=== PATIENT | male | born 1955 | race Caucasian/White ===

== ENCOUNTER → 2021-07-03 03:19 | Outpatient (CLI) | payer BC, SELFPAY ==
[2021-07-03 17:41] LABS: SARS-CoV-2 RNA PCR Negative
== END ==
PROVIDERS: PCP Internal Medicine; Visit Provider Internal Medicine
DX: R68.89 Other general symptoms and signs (principal); Z20.822 Contact with and (suspected) exposure to COVID-19
CPT/HCPCS: C9803; U0003; U0005

== ENCOUNTER 2021-11-26 02:24 | Day surgery (SDC) | payer BC, SELFPAY ==
[2021-11-25 15:38] VITALS: BMI 32.5
--- NOTE | 2021-11-25 16:06 | PC.NURSE ---
Report to the Outpatient Waiting Room, entrance under the green pavilion located off [facility], at time __1045 on date __11/26/21 . OR Time: ____1245____. - You and your visitor will be asked a series of questions to screen for COVID 19 for your protection. - A mask is required within the hospital. Preoperative COVID Testing Requirements: NONE No COVID Test needed if: (proof is required; if not received patient will have Rapid Test prior to entry) - Patient has received COVID Vaccine at least 14 days prior to procedure date or - Patient has positive COVID test result within last 90 days of surgery date. COVID Test needed if above criteria is not met If not COVID vaccinated a COVID test must be conducted within 72 hours of surgery and patient is asked to isolate self from time of testing until procedure. You will go to the [facility] for your COVID testing. The [employer] [facility] site is located at the corner of [address] [facility]. You will only be called if COVID results are positive and your surgeon may reschedule your elective surgery date. Patients may have clear liquids (water, carbonated beverages, clear teas, apple juice) until 3 hours prior to surgery (0945 AM) with a maximum of 20 ounces. - No food from midnight until time of surgery - Infants may have breast milk until 4 hours before surgery, formula 6 hours prior to surgery. - Children will be allowed to drink immediately following surgery. If applicable, please bring a bottle or sippy cup to assist with drinking. Juice, water, soda, and popsicles are readily available. For infants on formula, please bring formula the day of surgery. Pacifiers are allowed. Take the following medications with a SIP of water the morning of surgery: __CARVEDILOL, HYDRALAZINE, ISOSORBIDE__ Medications to discontinue per physician __ASPIRIN PER DR KEY'S INSTRUCTIONS Date to take last dose Please no make-up, nail swiss, hairspray, perfume, deodorant, or body powder the day of surgery. No jewelry (including any body piercings) or valuables the day of surgery, leave them at home. Please take a shower or bath the night before, or the morning of, surgery with an antibacterial soap. Wear comfortable, loose fitting clothing. Children are encouraged to wear pajamas. - Jewelry must be removed prior to entering the operating room. Rings and piercings that are not removed may be cut off. - The hospital will not accept responsibility for valuables. - Please leave all valuables, including medications, at home the day of surgery. If you are going home after surgery, a licensed furniture mover driver must drive you home. - NO public transportation without another adult. - We recommend that an adult stay with you for 24 hours following discharge. - We also recommend that you do not drive, make important decision, drink alcoholic beverages, or take any drugs that were not prescribed by your health care provider for at least 24 hours after your discharge time. For Pediatric surgeries, we recommend two adults accompany the child home (only one inside the building at this time). One visitor will be allowed to accompany the patient into the hospital. Patients visitor will be instructed to remain with patient at all times or leave the building. We will allow the visitor to come back to the postoperative area when patient is ready. Follow any additional instructions given to you from your surgeon. Telephone instructions given to ___PT and asked if any additional questions and then verbalized understanding. Patient advised to call surgeon office or pre surgery nurse liaison [phone] if any additional questions.
[2021-11-26] VITALS (10 sets, daily range): BP systolic 98–151; BP diastolic 43–96; PULSE 75–87; RESP 12–22; TEMP 36.1; O2SAT 93–100
--- NOTE | 2021-11-26 06:29 | WPDHPUPDATE1 ---
History and Physical Update Update Date/Time: 11/26/21 06:29 History and Physical has been reviewed, including an updated exam of the patient. There are NO changes in the patient's condition. Risks, benefits, and alternatives have been discussed and questions answered. Patient agrees to proceed with procedure.
--- NOTE | 2021-11-26 10:36 | PC.NURSE ---
Spoke with [facility] , Alberto Rodriguez, phone # [phone], regarding note from Dr. Carney. Alberto called Dr. Carney's office and spoke with staff - stated that using a magnet during the surgical procedure would be sufficient. To call Alberto if any further questions.
--- NOTE | 2021-11-26 11:06 | ECG_ITS ---
Measurements Intervals [place] Rate: 80 P: -7 PA: 194 QRS: -23 QRSD: 109 T: 99 QT: 380 QTc: 440 Interpretive Statements SINUS RHYTHM LATERAL ST AND T-WAVE ABNORMALITY, CONSIDER HYPERTROPHY VERSUS ISCHEMIA LEFT VENTRICULAR HYPERTROPHY AND ST-T CHANGE [VOLTAGE CRITERIA PLUS ST/T ABNORMALITY] POSSIBLE SEPTAL MYOCARDIAL INFARCTION , OF INDETERMINATE AGE [30 ms Q WAVE IN V1/V2] ABNORMAL ECG Electronically Signed On 11-26-2021 15:25:19 DATA TECHNICAL LEAD by Shane Smith M.D.
--- NOTE | 2021-11-26 11:39 | WPDANESEPPF ---
Anes - Initial Pre Proc Eval Procedure: Operation Date: 11/26/21 12:45 Proposed Procedures p Cystoscopy, - Sam Carver MD s Possible Trans Urethral Resection Bladder Tumor with Gemcitabine Instillation - Sam Carver MD Date/Time: 11/26/21 11:39 Surgeon: Sam Carver MD Pre Op Diagnosis: bladder lesion Patient Data Age: 66 Gender: M Height: 1.83 m Weight: 109.09 kg Allergies Allergy/AdvReac Type Severity Reaction Status Date / Time iohexol AdvReac Hives Verified 11/26/21 11:05 [From contrast - CT, X-RAY] Home Medications Medication Instructions Recorded Confirmed Type aspirin [Aspir-81] 81 mg PO DAILY 11/25/21 11/26/21 History carvedilol 6.25 mg BID 11/25/21 11/26/21 History chlorthalidone 25 mg DAILY 11/25/21 11/26/21 History docusate sodium [Colace] 100 mg PO DAILY 11/25/21 11/26/21 History empagliflozin-linagliptin 25 tablet DAILY 11/25/21 11/26/21 History [Glyxambi] hydralazine 25 mg TID 11/25/21 11/26/21 History insulin glargine [Lantus Solostar 33 unit SUBCUT HS 11/25/21 11/26/21 History U-100 Insulin] insulin lispro [Humalog KwikPen See Rx Instructions .ROUTE .COMPLEX 11/25/21 11/26/21 History Insulin] isosorbide mononitrate 30 mg PO DAILY 11/25/21 11/26/21 History lisinopril 5 mg DAILY 11/25/21 11/26/21 History metformin 500 mg PO BID 11/25/21 11/26/21 History rosuvastatin 20 mg DAILY 11/25/21 11/26/21 History sulfamethoxazole-trimethoprim 1 tablet BID 11/25/21 11/26/21 History Laboratory Tests 11/26/21 11:27 Sodium Pending Potassium Pending Chloride Pending Carbon Dioxide Pending Anion Gap Pending BUN Pending Creatinine Pending Estim Creat Clear Calc Pending Estimated GFR Pending Glucose Pending Calcium Pending Patient hx anesthesia problems: none Family hx anesthesia problems: none Results Review: All pre-operative results and documents have been reviewed as part of the pre-operative evaluation. [facility] Past Medical History Medical History CAD (coronary artery disease) Cardiac defibrillator in place Hyperlipidemia Hypertension Surgical History Surgical History Hx of CABG Social History Social History Smoking status: Current every day smoker Tobacco type: cigars Additional smoking assessment comments: STATES 1 CIGAR DAILY Alcohol intake: current Drinks per week: 5 Substance use: never Substance use type: does not use Living arrangements: with family Spiritual care concerns: No Anes - Eval Final PreProcedure Day of Procedure 11/26/21 11:39 Patient weight: obese Heart: regular rate and rhythm Lungs: decreased breath sounds Airway: Mallampati scale class II Neurological: alert and oriented Last oral intake: >/= 8 hours ASA classification: IV Emergent: no Anesthetic plan: proceed Anesthesia type and monitoring: general LMA and standard monitoring Other findings: magnet on defib interrogate in recovery Results Review: All pre-operative results and documents have been reviewed as part of the pre-operative evaluation. Informed Consent: The patient's anesthetic plan and its attendant risks and benefits were discussed with the patient/family/POA. Questions were solicited and answers provided to the satisfaction of the patient/family/POA.
[2021-11-26 11:46] LABS: Anion Gap 10 mmol/L (8-16); Blood Urea Nitrogen 18 mg/dL (9-20); Carbon Dioxide 26 mmol/L (22-30); Chloride 104 mmol/L (98-107); Estimated CRCL calculation 84 ml/min; Estimated Glomerular Filt Rate > 60; Glucose 170 mg/dL (65-110); Potassium 4.3 mmol/L (3.4-5.0); Sodium 140 mmol/L (137-145)
[2021-11-26] MEDS: ceFAZolin 2 GM/D5W 50 ML 2 GM/50 ML BAG IVPB (12:42)
[2021-11-26] MEDS: LACTATED RINGERS 1,000 ML 30 ML IV CONT (12:45)
--- NOTE | 2021-11-26 13:30 | W.PM.PROC2 ---
Procedure Note - Detailed Date of Procedure 11/26/21 Pre-op Diagnosis Bladder lesion Post-op Diagnosis Other (Bladder tumor) Procedure Performed TURBT (medium, 3-4cm) Surgeon Sam Carver MD Anesthesia General Description of Procedure The patient was brought to the operative suite where he is prepped and draped in a routine sterile fashion while in the dorsal lithotomy position. This is done after the uneventful induction of a general LMA anesthetic. 2% Xylocaine jelly is introduced intraurethrally and allowed to stand for an appropriate period of time. A 24F resectoscope sheath was placed in the bladder and the bladder is circumferentially inspected carefully. in route to the bladder I found no urethral stricture and moderate lateral lobe hyperplasia of the prostate without significant median lobe enlargement. 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 This area is resected in its entirety with an attempt made to include detrusor muscle for pathological evaluation of invasion. The base and periphery of this resected site is cauterized with a loop electrode. The remainder of the bladder mucosa is endoscopically normal without hyperemia. Prostatic urethra shows no sign of urothelial neoplasm. I opted not to do random biopsies. The bladder is emptied and the resectoscope was removed. The patient is taken to the recovery room having tolerated this procedure well. Estimated Blood Loss 0 Drains Yes Packing No Pathology Yes Complications No immediate complications Condition Stable Disposition PACU
--- NOTE | 2021-11-26 13:33 | W.PM.PROC2 ---
Procedure Note - Detailed Date of Procedure 11/26/21 Pre-op Diagnosis Bladder cancer Post-op Diagnosis Same Procedure Performed Gemcitabine installation into the bladder Surgeon Sam Carver MD Anesthesia None Description of Procedure With the patient in the supine position, a 16F Peterson catheter is placed using sterile technique. Using a protective facemask, gown and double layer of gloves Gemcitabine 2gm in 100cc saline is administered through the catheter/into the bladder. The catheter is then plugged. Patient was instructed to lie supine x20min, then to roll both the left and right x20 min. each. Total dwell time will be 60 min., after which the bladder will be drained and catheter removed. Estimated Blood Loss 0 Drains Yes Packing No Pathology None sent Complications No immediate complications Condition Stable Disposition PACU
[2021-11-26] MEDS: SODIUM CHLORIDE 0.9% IV 23.7 ML, GEMCITABINE HCL 1,000 MG BLADDER ×2 (13:39→13:40)
[2021-11-26 14:00] LABS: Glucose Point of Care 120 mg/dl (65-105)
[2021-11-26 14:00] LABS: Glucose Point of Care 120 mg/dl (65-105)
--- NOTE | 2021-11-26 16:00 | SUR.PHASEII ---
TISHA, MACIEL REP, CALLED TO VERIFY HE RECEIVED RESULTS FROM INTERROGATION.
== END 2021-11-26 16:12 | disposition home or self-care (01) ==
PROVIDERS: PCP Internal Medicine; Visit Provider Urology
PROC: 0TJB8ZZ Inspection of Bladder, Via Natural or Artificial Opening Endoscopic (ICD-10-PCS; CPT 52000; principal; 2021-11-26 12:45)
PROC: 0TBB8ZZ Excision of Bladder, Via Natural or Artificial Opening Endoscopic (ICD-10-PCS; CPT 52235; 2021-11-26 12:45)
DX: C67.4 Malignant neoplasm of posterior wall of bladder (principal); N40.1 Benign prostatic hyperplasia with lower urinary tract symptoms; R31.9 Hematuria, unspecified; I25.2 Old myocardial infarction; I11.9 Hypertensive heart disease without heart failure; E11.9 Type 2 diabetes mellitus without complications; E78.00 Pure hypercholesterolemia, unspecified; I34.1 Nonrheumatic mitral (valve) prolapse; F17.210 Nicotine dependence, cigarettes, uncomplicated; Z95.1 Presence of aortocoronary bypass graft; Z79.82 Long term (current) use of aspirin; Z79.84 Long term (current) use of oral hypoglycemic drugs; Z79.4 Long term (current) use of insulin; I25.10 Atherosclerotic heart disease of native coronary artery without angina pectoris; E78.5 Hyperlipidemia, unspecified; Z95.810 Presence of automatic (implantable) cardiac defibrillator; E66.9 Obesity, unspecified; Z68.32 Body mass index [BMI] 32.0-32.9, adult; R94.31 Abnormal electrocardiogram [ECG] [EKG]; F12.90 Cannabis use, unspecified, uncomplicated
CPT/HCPCS: 52235; 51720; 36415; 80048; 82948; 88305; 93005; J0690; J1100; J2250; J2405; J2704; J3010; J7120; J9201

== ENCOUNTER 2023-12-23 06:52 | Outpatient (CLI) | payer MEDICARE, OTHER, SELFPAY ==
--- NOTE | ~2023-12-23 | CT_ITS ---
EXAMINATION: CT abdomen pelvis wo/w con DATE: 12/23/2023 07:48 INDICATION: History of malignancy of the bladder. TECHNIQUE: Computed tomography (CT) of the abdomen and pelvis was performed without and with 100 cc i ntravenous contrast. The dose-length product was 2780.44 mGy-cm. Automated exposure control and itera tive reconstruction technique were employed. COMPARISON: None. FINDINGS: Lung bases unremarkable. Heart size normal. No significant pleural or pericardial effusion. There are nonobstructing bilateral renal stones. There are gallstones. Nonobstructive bowel gas rosi jaspal. No significant vascular abnormality. Fatty infiltration of the liver. The spleen, pancreas, adre nal glands and right kidney are unremarkable. There are are small subcentimeter hypodensities of the left kidney, most likely benign. Small fat-containing umbilical hernia. Nonobstructive bowel pattern. Prostate gland is enlarged. No focal bladder wall abnormalities are identified. There is an upper ab dominal wall ventral hernia containing fat. Tiny fat-containing umbilical hernia. Severe lumbar spond ylosis. No focal lytic or blastic lesions. No lymphadenopathy. No significant vascular abnormality. IMPRESSION: 1. Nonobstructing bilateral nephrolithiasis. 2: Cholelithiasis. Reviewed, dictated and finalized at location B.
[2023-12-23 07:25] LABS: Estimated Glomerular Filt Rate > 60
== END 2023-12-23 06:53 | disposition home or self-care (01) ==
PROVIDERS: PCP Internal Medicine; Visit Provider Urology
DX: Z85.51 Personal history of malignant neoplasm of bladder (principal); K80.20 Calculus of gallbladder without cholecystitis without obstruction; N20.0 Calculus of kidney
CPT/HCPCS: 74178; Q9967

== ENCOUNTER 2025-02-15 09:58 | Outpatient (CLI) | payer MEDICARE, SELFPAY ==
--- NOTE | ~2025-02-15 | CT_ITS ---
CT of the Abdomen and Pelvis: Indication: History of bladder malignancy Technique: 2.5 mm axial scans were obtained through the abdomen and pelvis prior to and following in travenous administration of 130 cc of Omnipaque 350. Dose reduction technique was used on this scan b y utilizing automated exposure control and iterative reconstruction technique. The dose-length produc t (DLP) was 2632.79 mGy-cm. COMPARISON: 12/23/2023 Findings: Scans through the lung bases are unremarkable. The liver, spleen, pancreas, adrenals and right kidney are within normal limits. Calcified gallstone present. Punctate nonobstructing left renal stone noted. There are atherosclerotic calcifications of the aorta. No lymphadenopathy. No bowel obstruction or bowel wall thickening. Multiple gastric varices are present at the gastric fu ndus region, extending to the splenic hilum. There is no evidence to suggest acute appendicitis. Images through the pelvis were performed. Urinary bladder unremarkable. Prostate gland mildly enlarge d. No ascites. Impression: No evidence for active malignancy or metastatic disease. Multiple gastric varices at the gastric fundus extending to the splenic hilum, essentially stable fro m prior exam. Cholelithiasis. Reviewed, dictated and finalized at location M. Impression: No evidence for active malignancy or metastatic disease. Multiple gastric varices at the gastric fundus extending to the splenic hilum, essentially stable from prior exam. Cholelithiasis.
--- OUTSIDE RECORDS SUMMARY | 2025-02-15 10:05 | XMS_ITS | Referral Summary ---
Author Organization [facility] Address [address] [place] [id number] Care Team Providers Care Litigation Legal Secretary Name Role Phone Mohsen Lewis MD Primary Care Provider [phone] Encounters Date Type Department Care Team Description 01/11/2025 7:00 AM CDT Ancillary Procedure [facility] Card[facility] [address] [phone] ICD (implantable cardioverter-defibril lator), dual, in situ; Ischemic cardiomyopathy 01/10/2025 Results Follow-Up [facility] Card[facility] [address] [place] [phone] Angelica Reilly MD Transthoracic Echo (TTE) Complete W Doppler/CF 01/08/2025 7:44 AM CDT - 01/08/2025 11:59 PM CDT Hospital Encounter [facility] Cardiac Testing [address] [place] [phone] Chronic combined systolic and diastolic heart failure (HCC) Discharge Disposition: Discharge to home or self care 11/26/2024 1:15 PM NURSING ATTENDANT Office Visit [facility] Cardiology [address] [place] [phone] Angelica Reilly MD Coronary artery disease involving [place] coronary artery of [place] heart without angina pectoris (Primary Dx); Chronic combined systolic and diastolic heart failure (HCC); Cardiomyopathy, ischemic from Last 3 Months Allergies Active Allergy Reactions Criticality Noted Date Comments Iodinated Contrast Media Hives Medium 11/19/2019 Medications insulin lispro (HumaLOG) 100 unit/mL insulin pen Inject 10 Units under the skin Active insulin glargine (LANTUS,BASAGLAR ) 100 unit/mL (3 mL) insulin pen 30 Units Acti ve aspirin 81 mg enteric coated tablet Take 1 tablet (81 mg total) by mouth daily Active metFORMIN XR (GLUCOPHAGE XR) 500 mg 24 hr tablet 1 tablet (500 mg total) 2 (two) times a day Active hydrALAZINE (APRESOLINE) 25 mg tablet TAKE 1 TABLET(25 MG) BY MOUTH THREE TIMES DAILY 90 tablet 1 05/05/20 20 Active rosuvastatin (CRESTOR) 40 mg tablet Take 1 tablet (40 mg total) by mouth nightly 90 tablet 3 02/02/20 24 Active sacubitriL-valsa rtan (ENTRESTO) 24-26 mg tabletIndication s:chronic heart failure Take 1 tablet by mouth 2 (two) times a day 180 tablet 3 05/26/20 24 025 Active carvediloL (COREG) 12.5 mg tabletIndication s:Ischemic cardiomyopathy,E ssential hypertension TAKE 1 TABLET(12.5 MG) BY MOUTH TWICE DAILY WITH MEALS 180 tablet 1 08/20/20 24 Active isosorbide mononitrate ER (IMDUR) 30 mg 24 hr tablet TAKE 1 TABLET(30 MG) BY MOUTH DAILY 90 tablet 1 09/11/20 24 Active docusate sodium (COLACE) 100 mg capsuleIndicatio ns:constipation Take 1 capsule (100 mg total) by mouth 2 (two) times a day Active chlorthalidone (HYGROTON) 25 mg tabletIndication s:Abnormal ECG,Cardiomyopat hy, unspecified type (HCC),Mixed hyperlipidemia,E ssential hypertension TAKE 1 TABLET(25 MG) BY MOUTH EVERY MORNING 90 tablet 1 02/02/20 25 Active chlorthalidone (HYGROTON) 25 mg tabletIndication s:Abnormal ECG,Cardiomyopat hy, unspecified type (HCC),Mixed hyperlipidemia,E ssential hypertension TAKE 1 TABLET(25 MG) BY MOUTH EVERY MORNING 90 tablet 1 08/03/20 24 025 Discontinued Active Problems Problem Noted Date Diagnosed Date Obstructive sleep apnea 05/21/2024 Assessment & Plan (09/06/2024 9:29 AM NURSING ATTENDANT): Patient continue to wear CPAP at 8 cm water pressure while sleeping. I did provide the patient with a sample mask. Assessment & Plan (07/23/2024 8:24 AM CDT): The patient has improved with CPAP therapy but still has a significant mask leak. I will decrease the CPAP setting further to 8 cm water pressure and will have the order sent to his DME supplier who is [employer]. He will follow up here in 2 months. Assessment & Plan (05/21/2024 9:21 AM CDT): Due to the significant mask leak I will decrease the patient's CPAP pressure to 10 cm water pressure. I did ask the patient to call back in if he does not like the change in pressure. He did verbalize understanding. The patient's DME is [employer]. S/P coronary artery bypass graft x 4 02/02/2024 Overview (02/02/2024): DUMONT to the LAD, saphenous vein graft to the PDA, saphenous vein graft to the distal left circumflex artery and saphenous vein graft to the 1st diagonal branch Pure hypercholesterolemia 07/07/2022 Hyperkalemia 08/10/2021 Cardiomyopathy, ischemic 01/08/2021 Morbid obesity 04/09/2020 Assessment & Plan (04/09/2020 11:20 AM CDT): Encouraged dieting weight loss Coronary artery disease invo lving [place] coronary artery of [place] heart 12/20/2019 Assessment & Plan (10/15/2020 11:02 AM NURSING ATTENDANT): Prior CABG. Pretty continue aspirin and Toprol and Crestor Assessment & Plan (04/09/2020 11:18 AM CDT): Urgent CABG November 19. Continue aspirin metoprolol Paroxysmal atrial fibrillation 12/06/2019 Assessment & Plan (04/09/2020 11:19 AM CDT): Amiodarone stopped in December. No recurrence Assessment & Plan (01/09/2020 10:52 AM CDT): No events. Stop amiodarone Assessment & Plan (12/06/2019 3:34 PM CDT): Extremely low burden postop period anticoagulation not recommended. Will continue amiodarone for about 1 more month. ICD (implantable cardioverter-defibrillator), virgie coronado, in situ 12/06/2019 Assessment & Plan (10/15/2020 10:54 AM NURSING ATTENDANT): Check today shows normal function. Underlying rhythm sinus. 3% a pace no V pacing excellent lead function. Battery 8 years. Assessment & Plan (04/09/2020 11:19 AM CDT): Check today shows normal function. Underlying rhythm sinus. 6% a pace no V pacing. Excellent lead function. No events. Battery eight years Assessment & Plan (01/09/2020 10:53 AM CDT): Check today shows normal function. Underlying rhythm sinus. 6% a pace no V pacing excellent lead function. No arrhythmias. Battery 9 years Assessment & Plan (12/06/2019 3:35 PM CDT): Healing well. Abnormal ECG 11/01/2019 Cardiomyopathy 11/01/2019 Assessment & Plan (10/15/2020 11:02 AM NURSING ATTENDANT): Stable. Continue lisinopril and Toprol Assessment & Plan (12/06/2019 3:34 PM CDT): Severe ischemic status post CABG. Doing well. Blood pressure lower than needs to be. Reduce lisinopril to 10 mg daily Nonrheumatic mitral valve regurgitation 11/01/19 Assessment & Plan (04/09/2020 11:18 AM CDT): Oyoz-sh-iuhhbeum Nonrheumatic aortic valve insufficiency 11/01/19 Diastolic dysfunction 11/01/2019 Mixed hyperlipidemia 11/01/2019 Assessment & Plan (10/15/2020 11:02 AM NURSING ATTENDANT): LDL okay. Continue statin Assessment & Plan (04/09/2020 11:20 AM CDT): Continue Crestor 20 Assessment & Plan (12/06/2019 3:34 PM CDT): Continue Crestor 10 mg daily Essential hypertension 11/01/2019 Palpitations 11/01/2019 Resolved Problems Problem Noted Date Diagnosed Date Resolved Date Snoring 02/06/2024 05/21/2024 Assessment & Plan (02/06/2024 8:48 AM CDT): The patient presents with snoring and excessive daytime hypersomnia. I have recommended proceeding with a nocturnal polysomnogram with a split night protocol if necessary and no MSLT. He will follow up here in 3 months. Social History Tobacco Use Types Packs/Day Years Used Date Smoking Tobacco: Some Days Cigars Smokeless Tobacco: Current Tobacco Cessation:Ready to Q uit: Not Asked; Counseling Given: Not Answered Alcohol Use Standard Drinks/Week Comments Not Currently 0 (1 standard drink = 0.6 oz pur e alcohol) Sex and Gender Information Value Date Recorded Sex Assigned at Not on file Legal Sex Male 11:25 AM NURSING ATTENDANT Gender Identity Not on file Sexual Orientation Not on file Last Filed Vital Signs Vital Sign Reading Time Taken Comments Blood Pressure 117/64 11/26/2024 12:56 PM NURSING ATTENDANT Pulse 80 11/26/2024 12:56 PM NURSING ATTENDANT Temperature 36.2 C (97.1 F) 09/06/2024 8:22 AM NURSING ATTENDANT Respiratory Rate 18 09/06/2024 8:22 AM NURSING ATTENDANT Oxygen Saturation 93% 11/26/2024 12:56 PM NURSING ATTENDANT Inhaled Oxygen Concentration - - Weight 112 kg (247 lb) 11/26/2024 12:56 PM NURSING ATTENDANT Height 182.9 cm (6') 09/06/2024 8:22 AM NURSING ATTENDANT Body Mass Index 33.5 09/06/2024 8:22 AM NURSING ATTENDANT Plan of Treatment Not on file Procedures Procedure Name Priority Date/Time Associated Diagnosis Comments TRANSTHORACIC ECHO (TTE) COMPLETE W DOPPLER/CF W CONTRAST Routine 01/08/2025 8:51 AM CDT Chronic combined systolic and diastolic heart failure (HCC) ECG 12-LEAD Routine 11/26/2024 12:59 PM NURSING ATTENDANT Coronary artery disease involving [place] coronary artery of [place] heart without angina pectoris Chronic combined systolic and diastolic heart failure (HCC) CT ABDOMEN PELVIS WO CONTRAST Schedule Routine, Read Routine (OP Routine) 11/24/2021 12:09 PM NURSING ATTENDANT Hematuria, unspecified type from Last 3 Months or Most Recently Relevant to Health Maintenance Results * TRANSTHORACIC ECHO (TTE) COMPLETE W DOPPLER/CF W CONTRAST (01/08/2025 8:51 AM CDT) LV EF 40-45 % CONS SCIMAGE Anatomical Region Laterality Modality Ultrasound 01/08/2025 7:59 AM CDT Narrative 01/10/2025 2:51 PM CDT Transthoracic Echocardiographic Report Patient Name: NAYAN TSAIHolly : 1955 (69y 6m) Gender: M Study Date: 01/08/2025 07:59:06 AM Ht(Inch): 72 Wt(Lb): 247 BSA: 2.39 Sales Training Manager: Tila Engel RDCS Order Provider: ANGELICA REILLY Heart Rate: 71 BMI: 33.5 BP: 117 / 64 Ref Provider: ANGELICA REILLY PROCEDURES: Echocardiographic Report: ([id number]) Transthoracic complete echo with contrast, 2D, spectral and tissue Doppler, color flow Doppler, M-mode. Contrast: A contrast injection of Definity was performed to improve assessment of LV function. Definity Lot Number: [id number]. INDICATIONS: I50.42 Chronic combined systolic (congestive) and diastolic (congestive) heart failure. FINDINGS: Left Ventricle: Normal left ventricular cavity size. Mild concentric left ventricular hypertrophy. Mildly depressed left ventricular systolic function. The Ejection Fraction (Vargas's) is measured at 45 %. The Ejection Fraction is visually estimated to be 40-45 %. Diastolic Function Left ventricular diastolic function is normal and left ventricular diastolic parameters are consistent with Grade I diastolic dysfunction (normal LA pressure). Paradoxical interventricular septal motion is seen and is a common finding in the post open heart surgery patient. Regional Wall Motion: There is mild hypokinesis in the mid anterior septum and mid posterior segment. There is akinesis in the apical septum and mid anterior septum. Right Ventricle: Normal right ventricular size. Normal right ventricular systolic function. Wire noted in the right heart. Left Atrium: Mildly dilated left atrium. Right Atrium: The right atrium is normal in size. Atrial Septum: No shunt by color Doppler. Mitral Valve: Normal mitral valve leaflet structure. MR noted by spectral doppler but not seen with colorflow. No mitral valve stenosis. Aortic Valve: Trileaflet aortic valve. The aortic cusps appear mildly sclerosed. No aortic regurgitation seen. No aortic valve stenosis. The mean transaortic gradient is 4 mmHg. The aortic valve area by the continuity equation (using VTI) is 2.86 cm2. Tricuspid Valve: The tricuspid valve demonstrates normal leaflet structure. There is trace to mild tricuspid valve regurgitation. No tricuspid valve stenosis. Pulmonic Valve: IA noted with spectral doppler but not seen with colorflow. Aorta: Normal aortic root. The aortic sinus is normal in size. The ascending aorta is normal in size. IVC: IVC is normal in size. CONCLUSIONS: 1. Mildly depressed left ventricular systolic function. The Ejection Fraction (Vargas's) is measured at 45 %. The Ejection Fraction is visually estimated to be 40-45 %. Diastolic Function Left ventricular diastolic function is normal and left ventricular diastolic parameters are consistent with Grade I diastolic dysfunction (normal LA pressure). 2. There is mild hypokinesis in the mid anterior septum and mid posterior segment. There is akinesis in the apical septum and mid anterior septum. MEASUREMENTS: 2D/MM Value Range Doppler Value LVIDd 2D 5.70 cm [ 3.50 - 5.70 ] AV Peak Mark 1.26 m/s LVIDs 2D 3.30 cm [ 3.10 - 4.60 ] AV Peak PG 6.35 mmHg IVSd 2D 1.60 cm [ 0.60 - 1.20 ] AV Mean PG 4.00 mmHg LVPWd 2D 1.50 cm [ 0.60 - 1.10 ] AV VTI 27.50 cm LV Thickness Ratio 1.07 LVOT Peak Mark 0.89 m/s LV Mass 2D 419.43 g LVOT Peak PG 3.17 mmHg LV Mass Index 2D 175.49 g/m2 LVOT Mean PG 2.00 mmHg RWT 0.53 LVOT VTI 20.70 cm EDV Mod BP 165.00 ml [ 62.00 - 150.00 ] LVOT Diam 2.20 cm LV EDV Index 69.04 ml/m2 PIETRO VTI 2.86 cm2 ESV Mod BP 89.10 ml [ 21.00 - 61.00 ] PIETRO Vmax 2.68 cm2 EF Mod BP 45 % [ 52 - 72 ] LVOT/AV VTI 0.75 - Dimensionless index (DVI) Visually Estimated EF 40-45 % MV E Peak Mark 0.81 m/s LA Dimension 2D 5.60 cm [ 1.90 - 4.00 ] MV A Peak Mark 0.89 m/s LA Length 2C 5.47 cm MV E/A 0.90 ratio LA Length 4C 5.98 cm MV Decel Time 187.00 msec LA Volume BP 102.00 ml Med E` Mark 5.98 cm/sec LA Volume Index 42.68 ml/m2 [ 16.00 - 34.00 ] Lat E` Mark 7.83 cm/sec TAPSE 1.58 cm [ 1.71 - 5.00 ] Average E/E` 11.73 AoR Diam 2D 3.40 cm [ 2.00 - 3.70 ] RV S` 7.51 cm/sec Ao Root Index 1.42 cm/m2 [ 1.00 - 2.00 ] PV Peak Mark 0.91 m/s PV Peak PG 3.31 mmHg - COMPARISONS: As compared with prior study, the following changes are now seen LVEF has improved slightly to 40-45%. ATTESTATION: I have reviewed and interpreted the pertinent images and measurements of this study. I attest to the conclusions in the final report that is provided above. DISCLAIMER: The study images and the final report will be retained in the patient chart by the [facility] for the legally required time period. This chart constitutes the legal record of any testing performed. Electronically Signed By: Angelica Reilly MD 01/10/2025 2:51:37 PM CDT Procedure Note Angelica Reilly MD - 01/10/2025 Transthoracic Echocardiographic Report Patient Name: NAYAN TSAI D : 1955 (69y 6m) Gender: M Study Date: 01/08/2025 07:59:06 AM Ht(Inch): 72 Wt(Lb): 247 BSA: 2.39 Sales Training Manager: Tila Engel RDCS Order Provider: ANGELICA REILLY Heart Rate: 71 BMI: 33.5 BP: 117 / 64 Ref Provider: ANGELICA REILLY PROCEDURES: Echocardiographic Report: ([id number]) Transthoracic complete echo withcontrast, 2D, spectral and tissue Doppler, color flow Doppler, M-mode. Contrast: A contrast injection of Definity was performed to improveassessment of LV function. Definity Lot Number: [id number]. INDICATIONS: I50.42 Chronic combined systolic (congestive) and diastolic (congestive)heart failure. FINDINGS: Left Ventricle: Normal left ventricular cavity size. Mild concentric leftventricular hypertrophy. Mildly depressed left ventricular systolic function. TheEjection Fraction (Vargas's) is measured at 45 %. The Ejection Fraction is visuallyestimated to be 40-45 %. Diastolic Function Left ventricular diastolic function is normal andleft ventricular diastolic parameters are consistent with Grade I diastolic dysfunction(normal LA pressure). Paradoxical interventricular septal motion is seen and is acommon finding in the post open heart surgery patient. Regional Wall Motion: There is mild hypokinesis in the mid anterior septumand mid posterior segment. There is akinesis in the apical septum and mid anteriorseptum. Right Ventricle: Normal right ventricular size. Normal right ventricularsystolic function. Wire noted in the right heart. Left Atrium: Mildly dilated left atrium. Right Atrium: The right atrium is normal in size. Atrial Septum: No shunt by color Doppler. Mitral Valve: Normal mitral valve leaflet structure. MR noted by spectraldoppler but not seen with colorflow. No mitral valve stenosis. Aortic Valve: Trileaflet aortic valve. The aortic cusps appear mildlysclerosed. No aortic regurgitation seen. No aortic valve stenosis. The mean transaorticgradient is 4 mmHg. The aortic valve area by the continuity equation (using VTI) is 2.86cm2. Tricuspid Valve: The tricuspid valve demonstrates normal leafletstructure. There is trace to mild tricuspid valve regurgitation. No tricuspid valvestenosis. Pulmonic Valve: IA noted with spectral doppler but not seen withcolorflow. Aorta: Normal aortic root. The aortic sinus is normal in size. Theascending aorta is normal in size. IVC: IVC is normal in size. CONCLUSIONS: 1. Mildly depressed left ventricular systolic function. The EjectionFraction (Vargas's) is measured at 45 %. The Ejection Fraction is visually estimated to be40-45 %. Diastolic Function Left ventricular diastolic function is normal and leftventricular diastolic parameters are consistent with Grade I diastolic dysfunction (normal LApressure). 2. There is mild hypokinesis in the mid anterior septum and mid posteriorsegment. There is akinesis in the apical septum and mid anterior septum. MEASUREMENTS: 2D/MM Value Range DopplerValue LVIDd 2D 5.70 cm [ 3.50 - 5.70 ] AV Peak Vel1.26 m/s LVIDs 2D 3.30 cm [ 3.10 - 4.60 ] AV Peak PG6.35 mmHg IVSd 2D 1.60 cm [ 0.60 - 1.20 ] AV Mean PG4.00 mmHg LVPWd 2D 1.50 cm [ 0.60 - 1.10 ] AV VTI27.50 cm LV Thickness Ratio 1.07 LVOT PeakVel 0.89 m/s LV Mass 2D 419.43 g LVOT Peak PG3.17 mmHg LV Mass Index 2D 175.49 g/m2 LVOT Mean PG2.00 mmHg RWT 0.53 LVOT VTI20.70 cm EDV Mod BP 165.00 ml [ 62.00 - 150.00 ] LVOT Diam2.20 cm LV EDV Index 69.04 ml/m2 PIETRO VTI2.86 cm2 ESV Mod BP 89.10 ml [ 21.00 - 61.00 ] PIETRO Vmax2.68 cm2 EF Mod BP 45 % [ 52 - 72 ] LVOT/AV VTI0.75 - Dimensionless index (DVI) Visually Estimated EF 40-45 % MV E PeakVel 0.81 m/s LA Dimension 2D 5.60 cm [ 1.90 - 4.00 ] MV A PeakVel 0.89 m/s LA Length 2C 5.47 cm MV E/A0.90 ratio LA Length 4C 5.98 cm MV DecelTime 187.00 msec LA Volume BP 102.00 ml Med E` Vel5.98 cm/sec LA Volume Index 42.68 ml/m2 [ 16.00 - 34.00 ] Lat E` Vel7.83 cm/sec TAPSE 1.58 cm [ 1.71 - 5.00 ] Average E/E`11.73 AoR Diam 2D 3.40 cm [ 2.00 - 3.70 ] RV S`7.51 cm/sec Ao Root Index 1.42 cm/m2 [ 1.00 - 2.00 ] PV Peak Vel0.91 m/s PV Peak PG 3.31 mmHg - COMPARISONS: As compared with prior study, the following changes are now seen LVEF hasimproved slightly to 40-45%. ATTESTATION: I have reviewed and interpreted the pertinent images and measurements ofthis study. I attest to the conclusions in the final report that is provided above. DISCLAIMER: The study images and the final report will be retained in the patientchart by the [facility] for the legally required time period. This chart constitutesthe legal record of any testing performed. Electronically Signed By: Angelica Reilly MD 01/10/2025 2:51:37 PM CDT Angelica Reilly MD CV ECHO PROCEDURES Final Result * ECG 12 lead (11/26/2024 12:59 PM NURSING ATTENDANT) us Angelica Reilly MD ECG ORDERABLES Fi nal Result * CT Abdomen Pelvis WO Contrast (11/24/2021 12:09 PM NURSING ATTENDANT) Anatomical Region Laterality Modality Body N/A Computed Tomogra phy 11/24/2021 12:1 7 PM NURSING ATTENDANT Narrative 11/24/2021 12:25 PM NURSING ATTENDANT EXAM DESCRIPTION: CT ABDOMEN PELVIS WO CONTRAST REASON FOR STUDY: HEMATURIA Hematuria and rt flank pain started this am TECHNIQUE: CT scan of the abdomen and pelvis performed without intravenous and without oral contrast using helical scanning technique. Reconstructed coronal and sagittal MPR images reviewed. All images stored on PACS. Automated exposure control was used as a dose optimization technique for this examination. COMPARISON: CT abdomen pelvis 11/22/2019 FINDINGS: The sensitivity for detection of visceral lesions is diminished without the use of intravenous contrast. LOWER CHEST: Minimal lingular atelectasis. Surgical changes of the heart. Right atrial and right ventricular leads from a cardiac device are partially visualized. No pleural or pericardial effusion. LIVER: Normal size and morphology. No focal liver lesion. GALLBLADDER: Cholelithiasis. No inflammatory changes. BILE DUCTS: No intrahepatic or extrahepatic biliary dilation. SPLEEN: Normal size. No focal lesions. PANCREAS: Grossly normal bulk and contour. No duct dilation or inflammatory change. ADRENALS: Normal. KIDNEYS/URINARY TRACT: Normal and symmetric renal size and contour. Tiny 1-2 mm nonobstructing stones in the left upper and lower poles. No obstructing stones. No hydroureteronephrosis. There is an irregular region of increased density in the right posterior aspect of the urinary bladder, near the right ureterovesical junction, measuring 2.8 x 2.2 cm. Mild chronic bladder wall thickening. GI: Stomach is grossly unremarkable, though somewhat distended with ingested material. Small bowel is not obstructed. Normal appendix is seen posterior to the cecum. There is colonic diverticulosis without evidence of acute diverticulitis. PERITONEUM: No ascites or free air. RETROPERITONEUM: No mass or adenopathy. REPRODUCTIVE: Mild prostatomegaly. VASCULATURE: No abdominal aortic aneurysm. Moderate atherosclerotic calcifications. MUSCULOSKELETAL: No acute fracture. No suspicious lytic or sclerotic bone lesion. There are 2 vertebral hemangiomas within the L2 vertebral body. There are degenerative changes throughout the lumbar spine. OTHER: There is a small fat containing hernia with a wide neck just inferior to the xiphoid. IMPRESSION: 1. Heterogeneous and irregular region of increased density in the right posterior aspect of the urinary bladder, close to the right ureterovesical junction. This is not calcium density. It could be blood products or clot. A mass lesion cannot be excluded. Correlation with urinalysis is needed. Urologic consultation and consideration for cystoscopy suggested. 2. Tiny nonobstructing left renal stones. No obstructing renal stones. 3. Chronic findings including colonic diverticulosis, atherosclerosis, degenerative disease in the spine, and partially visualized cardiac surgery changes. THIS IS AN ELECTRONICALLY VERIFIED FINAL REPORT 11/24/2021 12:25 PM - Electronically signed by Shane Aleman M.D. T: Report ID: [id number] Reading Location: [id number] Procedure Note Shane Aleman MD - 11/24/2021 EXAM DESCRIPTION: CT ABDOMEN PELVIS WO CONTRAST REASON FOR STUDY: HEMATURIA Hematuria and rt flank pain started this am TECHNIQUE: CT scan of the abdomen and pelvis performed without intravenousand without oral contrast using helical scanning technique. Reconstructed coronal and sagittal MPR images reviewed. All images stored on PACS. Automated exposure control was used as a dose optimization technique forthis examination. COMPARISON: CT abdomen pelvis 11/22/2019 FINDINGS: The sensitivity for detection of visceral lesions is diminished withoutthe use of intravenous contrast. LOWER CHEST: Minimal lingular atelectasis. Surgical changes of theheart. Right atrial and right ventricular leads from a cardiac device arepartially visualized. No pleural or pericardial effusion. LIVER: Normal size and morphology. No focal liver lesion. GALLBLADDER: Cholelithiasis. No inflammatory changes. BILE DUCTS: No intrahepatic or extrahepatic biliary dilation. SPLEEN: Normal size. No focal lesions. PANCREAS: Grossly normal bulk and contour. No duct dilation orinflammatory change. ADRENALS: Normal. KIDNEYS/URINARY TRACT: Normal and symmetric renal size and contour.Tiny 1-2 mm nonobstructing stones in the left upper and lower poles. No obstructing stones. No hydroureteronephrosis. There is an irregularregion of increased density in the right posterior aspect of the urinary bladder, near the right ureterovesical junction, measuring 2.8 x 2.2 cm. Mildchronic bladder wall thickening. GI: Stomach is grossly unremarkable, though somewhat distended withingested material. Small bowel is not obstructed. Normal appendix is seenposterior to the cecum. There is colonic diverticulosis without evidence of acute diverticulitis. PERITONEUM: No ascites or free air. RETROPERITONEUM: No mass or adenopathy. REPRODUCTIVE: Mild prostatomegaly. VASCULATURE: No abdominal aortic aneurysm. Moderate atherosclerotic calcifications. MUSCULOSKELETAL: No acute fracture. No suspicious lytic or scleroticbone lesion. There are 2 vertebral hemangiomas within the L2 vertebral body. There are degenerative changes throughout the lumbar spine. OTHER: There is a small fat containing hernia with a wide neck justinferior to the xiphoid. IMPRESSION: 1. Heterogeneous and irregular region of increased density in the right posterior aspect of the urinary bladder, close to the right ureterovesical junction. This is not calcium density. It could be blood products orclot. A mass lesion cannot be excluded. Correlation with urinalysis is needed. Urologic consultation and consideration for cystoscopy suggested. 2. Tiny nonobstructing left renal stones. No obstructing renal stones. 3. 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 THIS IS AN ELECTRONICALLY VERIFIED FINAL REPORT 11/24/2021 12:25 PM - Electronically signed by Shane Aleman M.D. T: Report ID: [id number] Reading Location: [place] [id number] Mohsen Lewis MD IMG CT PROCEDURES Final R esult from Last 3 Months or Most Recently Relevant to Health Maintenance Insurance [facility] CHOICE PLUS MEDICARE MEDICARE [facility] Care Teams Litigation Legal Secretary Relationship Specialty Start Date End Date Mohsen Lewis MD PCP - General 10/25/19
--- OUTSIDE RECORDS SUMMARY | 2025-02-15 10:06 | XMS_ITS | Encounter Summary ---
Author Organization [facility] Address [address] [place] [id number] Care Team Providers Care Leather Goods Assembler Name Role Phone Mohsen Lewis MD Primary Care Provider [phone] Encounter Details Date Type Department Care Team (Late st Contact Info) Description 01/10/2025 Results Follow-Up [facility] Cardiology [address] [facility] [address] [place] [phone] Bridger Reilly MD [address] [facility] [address] [id number] Transthoracic Echo (TTE) Complete W Doppler/CF Social History Tobacco Use Types Packs/Day Years Used Date Smoking Tobacco: Some Days Cigars Smokeless Tobacco: Current Alcohol Use Standard Drinks/Week Comments Not Currently 0 (1 standard drink = 0.6 oz pur e alcohol) Sex and Gender Information Value Date Recorded Sex Assigned at Not on file Legal 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
--- OUTSIDE RECORDS SUMMARY | 2025-02-15 10:06 | XMS_ITS | Continuity of Care Document ---
Author Organization [facility] Address [address] [place] [address] Phone Care Team Providers Care Entry Tech Name Role Phone Mohsen Lewis MD Unavailable Unavailable Allergies, Adverse Reactions, Alerts Substance Reaction Status Criticality Iodinated Contrast Media Active No Information No Known Drug Allergies Other Active No I nformation Medications Medication Instructions Dosage Effective Dates (start - stop) Status Comments Entresto 24 mg-26 mg tablet take 1 tablet by oral route 2 times every day 1.00 tablet - Active B-D PEN NDL SHRT [id number](02/08) SETH USE TO INJECT INSULIN THREE TIMES DAILY - Active GLYXAMBI 25MG/5MG TABLETS TAKE 1 TABLET BY MOUTH EVERY DAY IN THE MORNING - Active LANTUS SOLOSTAR PEN INJ 3ML ADMINISTER 33 UNITS UNDER THE SKIN EVERY DAY AT BEDTIME - Active HYDRALAZINE 25MG TABLETS(ORANGE) TAKE 1 TABLET BY MOUTH THREE TIMES DAILY WITH FOOD - Active metformin ER 500 mg tablet,extended release 24 hr TAKE 2 TABLETS BY MOUTH DAILY WITH THE EVENING MEAL - Active rosuvastatin 40 mg tablet take 1 tablet by oral route every day 40 MG - Active Humalog KwikPen (U-100) Insulin 100 unit/mL subcutaneous INJECT 4-10 UNITES UNDER THE SKIN FOLLOWING SLIDING SCALE THREE TIMES DAILY, NO MORE THAN 30 UNITS PER DAY - Active carvedilol 12.5 mg tablet take 1 tablet by oral route 2 times every day with food 12.5 MG - Active lisinopril 5 mg tablet take 1 tablet by oral route 2 times every day 5 MG - Active chlorthalidone 25 mg tablet take 1 tablet by oral route every day 25 MG - Active isosorbide mononitrate ER 30 mg tablet,extended release 24 hr take 1 tablet by oral route every day in the morning 30 MG - Active Colace 100 mg capsule take 1 capsule by oral route 2 times every day at bedtime as needed 100 MG - Active ADULT LOW STRENGTH 81MG TABS 1 QD-daily - Active Procedures Procedure Date Pt inelig neg scrn david OFFICE [id number] SYST BP GE 130 - 139MM HG DIAST BP 80-89 MM HG BASIC METABOLIC PANEL(BMP) HEMOGLOBIN A1C HGA1C, GLYCO ROUTINE VENIPUNCTURE IL CBC, INC PLATELETS AND DIFFERENTIAL COMPREHEN METABOLIC PANEL CMP HEMOGLOBIN A1C HGA1C, GLYCO LIPID PANEL MICROALBUMIN, QN (URINE) CREATININE, (U-R) PSA, TOTAL, SCREENING MEDICARE ONLY Pt inelig neg scrn david FALL RISK ASSESSMENT DOC'D PRES/ABSN URINE INCON ASSESS PPPS, subseq visit SYST BP GE 130 - 139MM HG DIAST BP < 80 MM HG ROUTINE VENIPUNCTURE IL Pt inelig neg charlotten david OFFICE [id number]-AXIEKARV SYST BP GE 130 - 139MM HG DIAST BP 80-89 MM HG BASIC METABOLIC PANEL(BMP) HEMOGLOBIN A1C HGA1C, GLYCO Pt inelig neg scrn depres OFFICE [id number] SYST BP LT 130 MM HG DIAST BP < 80 MM HG ROUTINE VENIPUNCTURE IL Fecal Occult Blood Mdcr CBC, INC PLATELETS AND DIFFERENTIAL COMPREHEN METABOLIC PANEL [facility] [address] 3 HEMOGLOBIN A1C HGA1C, GLYCO LIPID PANEL MICROALBUMIN, QN (URINE) CREATININE, (U-R) PSA, TOTAL, SCREENING MEDICARE ONLY Pt inelig neg scrn depres FALL RISK ASSESSMENT DOC'D PRES/ABSN URINE INCON ASSESS SYST BP LT 130 MM HG DIAST BP < 80 MM HG ROUTINE VENIPUNCTURE IL INIT PREVENT PHYS EXAM; LIMITED TO NEW B ENEFICIARY BASIC METABOLIC PANEL(BMP) HEMOGLOBIN A1C HGA1C, GLYCO OFFICE [id number] SYST BP GE 130 - 139MM HG DIAST BP < 80 MM HG PNEUMOVAX ADM MEDICARE Pneumococcal Conjugate Vaccine (PCV20) J ROUTINE VENIPUNCTURE IL FECAL GLOBULIN (FOBT) Pt inelig neg scrn depres PREVENTATIVE-EST: 40-64 BODY MASS INDEX DOCD SYST BP GE 130 - 139MM HG DIAST BP < 80 MM HG CBC, INC PLATELETS AND DIFFERENTIAL COMPREHEN METABOLIC PANEL [facility] [address] 2 HEMOGLOBIN A1C HGA1C, GLYCO LIPID PANEL MICROALBUMIN, QN (URINE) CREATININE, (U-R) PSA, TOTAL ROUTINE VENIPUNCTURE Pt inelig neg scrn depres OFFICE [id number] BODY MASS INDEX DOCD SYST BP >= 140 MM HG6 IT DIAST BP < 80 MM HG BASIC METABOLIC PANEL(BMP) ROUTINE VENIPUNCTURE URINALYSIS W MICROSCOPIC (UA) 2 Pt inelig neg scrn depres OFFICE [id number] BODY MASS INDEX DOCD SYST BP LT 130 MM HG DIAST BP < 80 MM HG BASIC METABOLIC PANEL(BMP) HEMOGLOBIN A1C HGA1C, GLYCO ROUTINE VENIPUNCTURE OFFICE [id number] BODY MASS INDEX DOCD SYST BP GE 130 - 139MM HG DIAST BP < 80 MM HG IMMUN ADMIN (INC PERCUTANEOUS) SINGLE, F IRST INJ Flu Vac, quad (RIV4), Preservative And A ntibiotic Free IM Pt inelig neg scrn depres PREVENTATIVE-EST: 40-64 BODY MASS INDEX DOCD SYST BP LT 130 MM HG DIAST BP < 80 MM HG CBC, INC PLATELETS AND DIFFERENTIAL COMPREHEN METABOLIC PANEL CMP HEMOGLOBIN A1C HGA1C, GLYCO LIPID PANEL MICROALBUMIN, QN (URINE) CREATININE, (U-R) PSA, TOTAL ROUTINE VENIPUNCTURE Pt inelig neg scrn depres OFFICE [id number] BODY MASS INDEX DOCD SYST BP >= 140 MM HG6 IT DIAST BP 80-89 MM HG BASIC METABOLIC PANEL(BMP) HEMOGLOBIN A1C HGA1C, GLYCO ROUTINE VENIPUNCTURE Pt inelig neg scrn depres BODY MASS INDEX DOCD SYST BP >= 140 MM HG6 IT DIAST BP < 80 MM HG PREVENTATIVE-EST: 40-64 CBC, INC PLATELETS AND DIFFERENTIAL COMPREHEN METABOLIC PANEL CMP 0 HEMOGLOBIN A1C HGA1C, GLYCO LIPID PANEL MICROALBUMIN, QN (URINE) CREATININE, (U-R) PSA, TOTAL ROUTINE VENIPUNCTURE Pt inelig neg scrn depres OFFICE [id number] BODY MASS INDEX DOCD SYST BP LT 130 MM HG DIAST BP < 80 MM HG DSCHRG MED/CURRENT MED MERGE Transitional Care- 14 Days Of Discharge BODY MASS INDEX DOCD SYST BP LT 130 MM HG DIAST BP < 80 MM HG Pt inelig neg scrn depres OFFICE [id number] BODY MASS INDEX DOCD SYST BP >= 140 MM HG6 IT DIAST BP 80-89 MM HG Pt inelig neg scrn depres PREVENTATIVE-EST: 40-64 BODY MASS INDEX DOCD SYST BP LT 130 MM HG DIAST BP < 80 MM HG Advance Directives Directive Yes / No Effective Date File Name Life Support Not Answered N/A N/A Intubation Not Answered N/A N/A Antibiotics Not Answered N/A N/A IV Fluid Support Not Answered N/A N/A Tube Feed Not Answered N/A N/A Other Directive N/A N/A WARNING:The information contained in this section is historical and is provided for information only and does not constitute a legal document or any assurance that the information is still accurate. Please verify the information with the frost of the legal document before using it for clinical purposes. Encounters Encounter Description Practice Location Reason(s) For Visit Diagnoses Date Provider Providers Copied on Encounter [facility] [address], [address], [place], [place], [address] , tel: [phone] [facility] No Information 5 English Connolly. [address] [place], [place], [address], [place]. tel:[phone] OFFICE HJRDY-MNU-DCX ABIODUN [facility], [address], [place], [place], [address] , tel: [phone] [facility] chronic problems (chief complaint) Body mass index [BMI] 33.0-33.9, adultAmputated toe of left footType 2 diabetes mellitus with diabetic neuropathy, unspecifiedVent ricular fibrillationLon g term (current) use of insulinIschemic cardiomyopathyLATROBE [facility], goal below 130/80Coronary artery disease of [place] artery of [place] heart with stable angina pectorisThrombo kelsey 5 English Connolly. [address] [place], [place], [address], [place]. tel:[phone] Referring Provider: Mohsen Lewis [address] [place], [address] . tel:[phone] [facility], [address], [place], [place], [address] , [place] tel:[phone] [facility] No Information 5 Ramiro Reed. [address] [place] [address], [id number], . tel:[phone] Referring Provider: Mohsen Lewis [address] [place], [address] . tel:[phone] [facility], [address], [place], [place], [address] , [place] tel: [phone] [facility] Hypertensive heart disease without heart failureType 2 diabetes mellitus with foot ulcer, unspecified whether alf insulin useNon-pressure chronic ulcer of other part of unspecified foot with unspecified severity 5 Hungarian Mohsen. [address] [place], [place], [address], [place]. tel:[phone] Referring Provider: Mohsen Lewis, [address] [place], [address] . tel:[phone] [facility] [address], [address], [place], [place], [address] , [place] tel: [phone] [facility] No Information 5 Hungarian Mohsen. [address] [place], [address], [place]. tel:[phone] [facility] [address], [address], [place], [place], [address] , [place] tel: [phone] [facility] No Information 4 Hungarian Mohsen. [address] [place], [address], [place]. tel:[phone] [facility] [address], [address], [place], [place], [address] , [place] tel: [phone] [facility] No Information 4 Hungarian Mohsen. [address] [place], [address], [place]. tel:[phone] [facility] [address], [address], [place], [place], [address] , [place] tel: [phone] [facility] No Information 4 Hungarian Mohsen. [address] [place], [address], [place]. tel:[phone] [facility], [address], [place], [place], [address] , [place] tel: [phone] [facility] No Information 4 Ramiro Reed. [address] [facility], [place] [address], [place], [address], . tel:[phone] Referring Provider: Mohsen Lewis, [address] [place], [address] . tel:[phone] [facility], [address], [place], [place], [address] , tel:[phone] [facility] PX (chief complaint) Body mass index [BMI] 32.0-32.9, adultEncounter for general adult medical examination without abnormal findingsHyperte nsive heart disease without heart failureType 2 diabetes mellitus with foot ulcerVentricula r fibrillationAmp utated toe of left footMixed hyperlipidemiaL kendall-term insulin useScreening for colon cancerProstate cancer screening 4 English Connolly. [address] [place], [place], [address], . tel:[phone] Referring Provider: Mohsen Lewis, [address] [place], [address] . tel:[phone] [facility], [address], [place], [place], [address] , tel:[phone] [facility] No Information 4 English Connolly. [address] [place], [address], [place]. tel:[phone] OFFICE BPCIK-CDO-KAF ANDED [facility], [address], [place], [place], [address] , tel:[phone] [facility] toe ulcer (chief complaint) Body mass index [BMI] 33.0-33.9, adultNon-healin g ulcer of foot, unspecified laterality, unspecified ulcer stageType 2 diabetes mellitus with foot ulcer 4 English Connolly. [address] [place], [address], [place]. tel:[phone] Referring Provider: Jessica Lewis, [address], [place], [address]. tel:[phone] [facility], [address], [place], [place], [address] , [place] tel: [phone] [facility] No Information 4 English Connolly. [address] [place], [address], [place]. [phone] [facility] [address], [place], [place], [address] , tel: [phone] [facility] No Information 4 Ramiro Reed. [address] [place] [address], [id number], [place]. tel:[phone] Referring Provider: Marie Jean Baptiste, [address] [place], [address] . tel:[phone] OFFICE VBPBE-VES-XUO ABIODUN [facility], [address], [place], [place], [address] , tel: [phone] [facility] chronic conditions (chief complaint)C hronic Conditions (chief complaint) Type 2 diabetes mellitus with other circulatory complication, with long-term current use of insulinAtrial fibrillation, unspecified typeCoronary artery disease involving [place] heart without angina pectoris, unspecified vessel or lesion typeThrombopeni aIschemic cardiomyopathyM ixed hyperlipidemiaL kendall-term insulin useHypertensive heart disease without heart failureBody mass index [BMI] 34.0-34.9, adult 4 Markel Salazar. [address] [place], [address], [place]. tel:[phone] Referring Provider: Mohsen Lewis, [address] [place], [address] . tel:[phone] [facility] [address], [place], [place], [address] , [place] tel:[phone] [facility] Screening for colon cancer 3 Ramiro Reed. [address] [place] [address], [id number], . tel:[phone] Referring Provider: Mohsen Lewis, [address] [place], [address] . tel:[phone] [facility], [address], [place], [place], [address] , [place] tel: [phone] [facility] No Information 3 Ramiro Bansaln. [address] [facility], [address], [id number], [place]. tel:[phone] Referring Provider: Mohsen Lewis, [address] [place], [address] . tel:[phone] [facility], [address], [place], [place], [address] , [place] tel: [phone] [facility] px (chief complaint)M edicare preventive (chief complaint) Body mass index [BMI] 33.0-33.9, adultEncounter for general adult medical examination without abnormal findingsCoronar y artery disease involving [place] heart without angina pectoris, unspecified vessel or lesion typeIschemic cardiomyopathyT ype 2 diabetes mellitus with other circulatory complication, with long-term current use of insulinAmputate d toe of left footVentricular tachycardiaAtri al fibrillation, unspecified typeThrombopeni aScreening for colon cancer 3 English Connolly. [address] [place], [place], [address], [place]. tel:[phone] Referring Provider: Mohsen Lewis, [address] [place], [address] . tel:[phone] [facility], [address], [place], [place], [address] , [place] tel: [phone] [facility] No Information 3 English Connolly. [address] [place], [place], [address], [place]. tel:[phone] [facility], [address], [place], [place], [address] , [place] tel: [phone] [facility] No Information 3 Ramiro Bansaln. [address] [facility], [place] [address], [place], [place], [address], [place]. tel:[phone] Referring Provider: Marie Jean Baptiste, [address] [place], [address] . tel:[phone] OFFICE IBGMB-QKX-AFY ABIODUN [facility], [address], [place], [place], [address] , tel:[phone] [facility] Patient encounter (chief complaint) Coronary artery disease involving [place] heart without angina pectoris, unspecified vessel or lesion typeType 2 diabetes mellitus without complicationsMi xed hyperlipidemiaI schemic cardiomyopathyH [place], goal below 130/80Body mass index [BMI] 33.0-33.9, adult 3 Markel Salazar. [address] [place], [address], . tel:[phone] Referring Provider: Mohsen Lewis, [address] [place] [address], [address] . tel:[phone] [facility], [address], [place], [place], [address] , tel:[phone] [facility] No Information 2 English Connolly. [address] [place] [address], [address], [place]. tel:[phone] [facility], [address], [place], [place], [address] , tel:[phone] [facility] Colon cancer screening 2 English Connolly. [address] [place] [address], [address], . tel:[phone] Referring Provider: [place], [address] . tel:[phone] PREVENTATIVE- EST: 40-64 [facility], [address], [place], [place], [address] , [place] tel:[phone] [facility] PX (chief complaint) Encounter for general adult medical examination without abnormal findingsCoronar y artery disease involving [place] heart without angina pectoris, unspecified vessel or lesion typeAmputated toe of left footCardiomyopa thy, unspecified typeType 2 diabetes mellitus with other circulatory complication, with long-term current use of insulinVentricu lar tachyarrhythmia Body mass index [BMI] 33.0-33.9, adultProstate cancer screeningMixed hyperlipidemia 2 English Connolly. [address] [place], [address], . tel:[phone] Referring Provider: [place], [address] . tel:[phone] OFFICE YXIMU-RMK-VUS [facility], [address], [place], [place], [address] , tel: [phone] [facility] hematuria (chief complaint) Hematuria, unspecified typeBody mass index [BMI] 34.0-34.9, adultEssential hypertensionBla dder mass 2 English Connolly. [address] [place], [address], . tel:[phone] Referring Provider: [place], [address] . tel:[phone] OFFICE EUUUA-SZC-ARO [facility], [address], [place], [place], [address] , tel: [phone] [facility] 6 mo followup of chronic conditions (chief complaint)C hronic Conditions (chief complaint) HTN, goal below 130/80Mixed hyperlipidemiaT ype 2 diabetes mellitus without complicationsCo ronary artery disease involving [place] heart without angina pectoris, unspecified vessel or lesion typeIschemic cardiomyopathyB jayde mass index [BMI] 34.0-34.9, adult 2 Jean Baptiste Marie. [address] [place], [place], [address], . tel:[phone] Referring Provider: [place], [address] . tel:[phone] [facility], [address], [place], [place], [address] , tel: [phone] [facility] Exposure to confirmed case of COVID-19 1 English Connolly. [address] [place], [address], [place]. tel:[phone] OFFICE MNDRW-EOU-JOF ANDED [facility], [address], [place], [place], [address] , [place] tel: [phone] [facility] toenail (chief complaint) Avulsion of toenail, initial encounter May- 1 English Connolly. [address] [place], [address], . tel:[phone] Referring Provider: [place], [address] . tel:[phone] PREVENTATIVE- EST: 40-64 [facility], [address], [place], [place], [address] , [place] tel: [phone] [facility] PX (chief complaint) Body mass index (BMI) 35.0-35.9, adultEncounter for general adult medical examination without abnormal findingsType 2 diabetes mellitus with other circulatory complication, with long-term current use of insulinVentricu lar tachyarrhythmia Coronary artery disease involving [place] heart without angina pectoris, unspecified vessel or lesion typeEssential (primary) hypertension Mar- 1 English Connolly. [address] [place], [address], . tel:[phone] Referring Provider: [place], [address] . tel:[phone] [facility], [address], [place], [place], [address] , [place] tel: [phone] [facility] No Information 1 English Connolly. [address] [place], [address], [place]. tel:[phone] OFFICE CSEXY-WEK-GYP ABIODUN [facility], [address], [place], [place], [address] , [place] tel: [phone] [facility] 6 mo f/u chronic conditions (chief complaint)C hronic Conditions (chief complaint) Type 2 diabetes mellitus with other circulatory complication, with long-term current use of insulinCoronary artery disease involving [place] heart without angina pectoris, unspecified vessel or lesion typeCardiomyopa thy, unspecified typeVentricular tachyarrhythmia skilled nursing (current) use of insulinBenign essential hypertensionBod y mass index (BMI) 36.0-36.9, adultRoutine medical examEpigastric hernia 1 Markel Salazar. [address] [place], [place], [address], . tel:[phone] Referring Provider: [place], [address] . tel:[phone] [facility], [address], [place], [place], [address] , tel: [phone] [facility] No Information 0 English Connolly. [address] [place], [address], [place]. tel:[phone] PREVENTATIVE- EST: 40-64 [facility], [address], [place], [place], [address] , tel: [phone] [facility] PX (chief complaint) Body mass index (BMI) 35.0-35.9, adultEncounter for general adult medical examination without abnormal findingsCoronar y artery disease involving [place] heart without angina pectoris, unspecified vessel or lesion typeVentricular tachyarrhythmia Cardiomyopathy, unspecified typeAmputated toe of left footType 2 diabetes mellitus with other circulatory complication, with long-term current use of insulinLong term (current) use of insulinEncounte r for screening for malignant neoplasm of colon 0 English Connolly. [address] [place], [address], [place]. tel:[phone] Referring Provider: [place], [address] . tel:[phone] [facility], [address], [place], [place], [address] , tel: [phone] [facility] Type 2 diabetes mellitus without complication, with long-term current use of insulinLong term (current) use of insulinEssentia l hypertensionBlo od tests for routine general physical examinationEnco unter for prostate cancer screening 0 English Connolly. [address] [place], [address], . tel:[phone] Referring Provider: [place], [address] . tel:[phone] OFFICE ZPCAS-HAH-YXK [facility], [address], [place], [place], [address] , tel: [phone] [facility] Telehealth (chief complaint)d iscuss DM meds (chief complaint) Body mass index (BMI) 32.0-32.9, adultType 2 diabetes mellitus without complication, with long-term current use of insulinBenign essential hypertensionHyp erkalemia Dec-- 0 English Connolly. [place], [address], . tel:[phone] Referring Provider: [place], [address] . tel:[phone] Transitional Care- 14 Days Of Discharge [facility], [address], [place], [place], [address] , tel: [phone] [facility] F/U from [place] and surgery (chief complaint) Coronary artery disease involving [place] heart without angina pectoris, unspecified vessel or lesion typeIron deficiency anemia, unspecified iron deficiency anemia typeVentricular tachyarrhythmia Cardiomyopathy, unspecified type Nov- 0 English John. [place], [address], . tel:[phone] Referring Provider: [place], [address] . tel:[phone] [facility], [address], [place], [place], [address] , [place] tel:[phone] [facility] Murmur 0 English John. [place], [address], . tel:[phone] OFFICE XCSPH-WVA-PHL [facility], [address], [place], [place], [address] , tel: [phone] [facility] 6 month (chief complaint) Body mass index (BMI) 35.0-35.9, adultBenign essential hypertensionTyp e 2 diabetes mellitus without complication, with long-term current use of insulinSystolic murmur 0 Hungarian John. [place], [address], . tel:[phone] Referring Provider: [place], [address] . tel:[phone] [facility], [address], [place], [place], [address] , tel: [phone] [facility] Benign essential hypertensionTyp e 2 diabetes mellitus without complication, with long-term current use of insulinLong term (current) use of insulin 0 English John. [place], [address], . tel:[phone] PREVENTATIVE- EST: 40-64 [facility], [address], [place], [place], [address] , tel: [phone] [facility] Physical (chief complaint) Body mass index (BMI) 35.0-35.9, adultRoutine health maintenanceType 2 diabetes mellitus with other diabetic neurological complicationAmp utated toe of left footSystolic murmurEssential hypertensionMix ed hyperlipidemia 9 Hungarian John. [place], [address], . tel:[phone] Referring Provider: [place], [address] . tel:[phone] [facility], [address], [place], [place], [address] , tel: [phone] [facility] Essential hypertensionMix ed hyperlipidemiaT ype 2 diabetes mellitus without complication, with long-term current use of insulinLong term (current) use of insulinScreenin g for malignant neoplasm of prostate 9 English John. [place], [place], [address], . tel:[phone] [facility], [address], [place], [place], [address] , tel: [phone] [facility] 4 month follow up (chief complaint) Body mass index (BMI) 34.0-34.9, adultLong term (current) use of insulinType 2 diabetes mellitus with other diabetic neurological complicationAmp utated toe of left footHTN, goal below 130/80 Nov- 9 English Connolly. [place], [address], . tel:[phone] Referring Provider: [place], [address] . tel:[phone] [facility], [address], [place], [place], [address] , tel: [phone] [facility] Diabetic polyneuropathy associated with type 2 diabetes mellitusBenign essential hypertensionMix ed hyperlipidemiaA mputated great toe of right foot 8 English Connolly. [place], [place], [address], . tel:[phone] Referring Provider: [place], [address] . tel:[phone] [facility], [address] [address], [place], [place], [address] , tel: [phone] Paras Type 2 diabetes mellitus without complication, without long-term current use of insulin Jun- 8 English Connolly. [place], [address], . tel:[phone] [facility], [address], [place], [place], [address] , tel: [phone] Paras Type 2 diabetes mellitus with other diabetic neurological complicationLon g term (current) use of insulin 8 English Connolly. [place], [address], . tel:[phone] Referring Provider: [place], [address] . tel:[phone] [facility], [address], [place], [place], [address] , tel: [phone] [place] Routine health maintenanceType II diabetes mellitus with neurological manifestationsD iabetic polyneuropathy associated with type 2 diabetes mellitusMixed hyperlipidemiaB enign essential hypertensionEnc ounter for screening for malignant neoplasm of colon Dec- 8 English Connolly. [place], [address], . tel:[phone] Referring Provider: Mohsen Lewis, [place], [address] . tel:[phone] [facility], [address], [place], [place], [address] , [place] tel: [phone] [place] Mixed hyperlipidemiaB enign essential hypertensionEnc ounter for long-term (current) use of other medicationsType 2 diabetes mellitus without complication, with long-term current use of insulinLong term (current) use of insulinScreenin g for malignant neoplasm of prostate Dec- 8 English Connolly. [place], [address], [place]. tel:[phone] [facility], [address], [place], [place], [address] , [place] tel: [phone] [place] Type 2 diabetes mellitus with other circulatory complication, with long-term current use of insulinEssentia l hypertensionMix ed hyperlipidemia 7 English Connolly. [place], [address], [place]. tel:[phone] Referring Provider: [place], [address] . tel:[phone] [facility], [address], [place], [place], [address] , [place] tel: [phone] [place] Encounter for long-term (current) use of other medicationsType II diabetes mellitus with neurological manifestationsD iabetic polyneuropathy associated with type 2 diabetes mellitusMixed hyperlipidemia 7 English Connolly. [place], [address], [place]. tel:[phone] [facility], [address], [place], [place], [address] , [place] tel: [phone] [place] Routine health maintenanceEsse ntial hypertensionMix ed hyperlipidemiaT ype 2 diabetes mellitus with other circulatory complication, with long-term current use of insulinLong term (current) use of insulin 7 Clovis Moyer. [address] [address], [place], [place], [facility], . tel:[phone] Referring Provider: Comfort Brannon, [address] [place] [address], [place], [facility]. tel:[phone] [facility], [address], [place], [place], [address] , [place] tel: [phone] [place] Essential hypertensionMix ed hyperlipidemiaT ype 2 diabetes mellitus without complication, without long-term current use of insulinEncounte r for long-term (current) use of other medicationsScre ening for malignant neoplasm of prostate 7 Clovis Moyer. [facility] [address], [place], [facility], . tel:[phone] [facility], [address], [place], [place], [address] , [place] tel: [phone] [place] Type 2 diabetes mellitus with other circulatory complication, with long-term current use of insulinLong term (current) use of insulinEssentia l hypertensionMix ed hyperlipidemiaU nknown varicella vaccination status 6 Clovis Moyer. [facility] [address], [place], [facility], . tel:[phone] Referring Provider: Comfort Brannon, [address] [place] [address], [place], [facility]. tel:[phone] [facility], [address], [place], [place], [address] , tel: [phone] [place] Encounter for long-term (current) use of other medications 0 6 Clovis Moyer. [address] [address], [place], [facility], [place]. tel:[phone] [facility], [address], [place], [place], [address] , [place] tel: [phone] [place] Essential (primary) hypertensionTyp e 2 diabetes mellitus with unspecified complicationsTy pe 2 diabetes mellitus with diabetic neuropathy, unspecified 6 Levy Trivedi. [address] [place], [address], [place]. tel:[phone] Referring Provider: Farooq Retana, [address] [place], [address] . tel:[phone] [employer], [address], [place], [place], [address] , tel: [phone] [place] Diabetic ulcer of left foot associated with type 2 diabetes mellitusType 2 diabetes mellitus with unspecified complicationsEs sential (primary) hypertension 6 Levy Trivedi. [address] [place], [place], [address], [place]. tel:[phone] Referring Provider: Farooq Retana, [address] [place], [address] . tel:[phone] [facility], [address], [place], [place], [address] , tel: [phone] [place] Essential (primary) hypertensionNon -pressure chronic ulcer of unspecified part of unspecified lower leg with unspecified severityMixed hyperlipidemiaT ype 2 diabetes mellitus with unspecified complicationsOs teomyelitis, unspecifiedEnco unter for immunizationDia betic ulcer of left foot associated with type 2 diabetes mellitus 6 Levy Trivedi. [address] [place], [place], [address], [place]. tel:[phone] Referring Provider: Farooq Retana, [address] [place], [address] . tel:[phone] [facility], [address], [place], [place], [address] , tel: [phone] [place] Benign hypertensionDM w/o complication type IIMixed hyperlipidemiaS pecial screening, prostate cancerEncounter for laboratory examination 6 Levy Trivedi. [place], [address], [place]. tel:[phone] [facility], [address], [place], [place], [address] , tel: [phone] [place] Osteomyelitis due to secondary diabetesOsteomy elitis, unspecifiedType 2 diabetes mellitus with diabetic neuropathy, unspecifiedDiab etic ulcer of left foot associated with type 2 diabetes mellitusNon-pre ssure chronic ulcer oth prt left foot w unsp severity 6 Levy Trivedi. [address] [place], [place], [address], [place]. tel:[phone] Referring Provider: Farooq Retana, [address] [place], [address] . tel:[phone] [facility], [address], [place], [place], [address] , tel: [phone] [place] Benign essential hypertensionMix ed hyperlipidemiaD M w/o complication type II 5 Veto Jean Baptiste. [address] [place], [address], [place]. [phone] Referring Provider: Farooq Retana, [address] [place], [address] . tel:[phone] [facility], [address], [place], [place], [address] , [place] tel: [phone] [place] Diabetes mellitus without mention of complication, type II or unspecified type, not stated as uncontrolledBen ign essential hypertensionPol yneuropathy in diabetesED (erectile dysfunction)Fat igueSnoring 5 Levy Trivedi. [address] [place], [address], [place]. tel:[phone] Referring Provider: Farooq Retana, [address] [place], [address] . tel:[phone] [facility], [address], [place], [place], [address] , tel: [phone] [place] DM w/o complication type II, uncontrolledBen ign essential hypertensionEnc ounter for long-term (current) use of other medications 5 Levy Trivedi. [address] [place], [place], [address], [place]. tel:[phone] [facility], [address], [place], [place], [address] , [place] tel: [phone] [place] Benign essential hypertensionMix ed hyperlipidemiaD iabetes mellitus without mention of complication, type II or unspecified type, not stated as uncontrolledCel lulitis, toeRoutine general medical examination at a [facility] care facility 4 Veto Jean Baptiste. [address] [place], [address], [place]. [phone] Referring Provider: Farooq Retana, [address] [place], [address] . tel:[phone] [facility], [address], [place], [place], [address] , [place] tel: [phone] [place] Encounter for long-term (current) use of other medicationsType II diabetes mellitus with neurological manifestationsM ixed hyperlipidemiaH ypertension, benignSpecial screening for malignant neoplasm of prostate 4 Levy Damian [address] [place], [place], [address], [place]. tel:[phone] [facility], [address], [place], [place], [address] , [place] tel: [phone] [place] No Information 4 Levy [place], [address], [place]. tel:[phone] [facility], [address], [place], [place], [address] , [place] tel: [phone] [place] Unspecified ulcer of lower limbUnspecified ulcer of lower limbDiabetes Mellitus Type 2, UncomplicatedDi abetes Mellitus Type 2, Uncomplicated Mar- 4 Levy Trivedi. [address] [place], [place], [address], [place]. tel:[phone] [facility], [address], [place], [place], [address] , [place] tel: [phone] [place] Diabetes Mellitus Type 2, UncomplicatedHy pertension, BenignMixed Hyperlipidemia January-0 4 Levy Trivedi. [address] [place], [place], [address], . [phone] Referring Provider: Farooq Retana, [address] [place], [address] . tel:[phone] [facility], [address], [place], [place], [address] , [place] tel: [phone] [place] Diabetes Mellitus Type 2, Uncomplicated 4 Levy Trivedi. [address] [place], [place], [address], [place]. [phone] [facility], [address], [place], [place], [address] , tel: [phone] [place] Hypertension, BenignTherapeut ic Drug Monitoring 3 Levy Trivedi. [address] [place], [place], [address], [place]. tel:[phone] Referring Provider: Farooq Retana, [address] [place], [address] . tel:[phone] [facility], [address], [place], [place], [address] , [place] tel: [phone] [place] Hypertension, Benign Jul-0 3 Levy Trivedi. [address] [place], [place], [address], [place]. tel:[phone] Referring Provider: Farooq Retana, [address] [place], [address] . tel:[phone] [facility] [facility], [address], [place], [place], [address] , [place] tel: [phone] [place] Diabetes Mellitus Type 2, UncomplicatedHy pertension, BenignMixed HyperlipidemiaR outine general medical examination at [facility] Medical Exam 3 Veto Jean Baptiste. [address] [place], [address], [place]. tel:[phone] Referring Provider: Ita Laws, [address] [place], [address]. tel:[phone] [facility], [address], [place], [place], [address] , [place] tel: [phone] [place] No Information 3 Levy Trivedi. [address] [place], [place], [address], [place]. tel:[phone] Referring Provider: Farooq Retana, [address] [place], [address] . tel:[phone] [facility] [facility], [address], [place], [place], [address] , [place] tel: [phone] [place] Type II diabetes mellitus with neurological manifePolyneuro quita in diabetesCallus of foot 3 Veto Jean Baptiste. [facility] [place], [address], [place]. tel:[phone] Referring Provider: Farooq Retana, [address] [place], [address] . tel:[phone] [facility], [address], [place], [place], [address] , [place] tel: [phone] [place] Diabetes mellitus without mention of complication, type II or unspecified type, not stated as uncontrolledLon g-term (current) use of other medications 3 Veto Jean Baptiste. [address] [place], [address], [place]. tel:[phone] [facility] [employer], [address], [place], [place], [address] , [place] tel: [phone] [facility] Dietary surveillance and counselingDiabe ghislaine mellitus without mention of complication, type II or unspecified type, uncontrolledDie tary surveillance and counselingDiabe ghislaine mellitus without mention of complication, type II or unspecified type, uncontrolled Oct- 2 3 Willis Frausto. [address], [facility] [address], [place], [place], [address]. tel:[phone] Referring Provider: Farooq Retana, [address] [place], [address] . tel:[phone] [facility], [address], [place], [place], [address] , tel: [phone] [place] Diabetes mellitus without mention of complication, type II or unspecified type, uncontrolled 3 Veto Jean Baptiste. [address] [place], [address], [place]. tel:[phone] Referring Provider: Farooq Retana, [address] [place], [address] . tel:[phone] [facility], [address], [place], [place], [address] , [place] tel: [phone] [place] Benign essential hypertensionDia betes mellitus without mention of complication, type II or unspecified type, not stated as uncontrolledMix ed hyperlipidemia 3 Levy Trivedi. [address] [place], [place], [address], [place]. tel:[phone] [facility], [address], [place], [place], [address] , [place] tel: [phone] [place] Diabetes with neurological manifestations, type II or unspecified type, not stated as uncontrolledOny salty and paronychia of toePolyneuropat hy in diabetes 2 Veto Jean Baptiste. [facility] [place], [address], [place]. tel:[phone] Referring Provider: Farooq Retana, [address] [place], [address] . tel:[phone] [facility], [address], [place], [place], [address] , [place] tel: [phone] [place] Benign essential hypertensionNEE D FOR PROPHYLACTIC VACCINATION AND INOCULATION, INFLUENZA 2 Levy Trivedi. [address] [place], [place], [address], . tel:[phone] Referring Provider: Farooq Retana, [address] [place], [address] . tel:[phone] [facility], [address], [place], [place], [address] , [place] tel: [phone] [place] Benign essential hypertensionLon g-term (current) use of other medications 2 Levy Trivedi. [address] [place], [place], [address], [place]. [phone] Referring Provider: Farooq Retana, [address] [place], [address] . tel:[phone] [facility], [address], [place], [place], [address] , [place] tel: [phone] [place] BENIGN HYPERTENSIONDMI I WO CMP NT ST UNCNTRMIXED HYPERLIPIDEMIAA nnual physical examRoutine general medical examination at a [facility] 2 Levy Trivedi. [address] [place] [address], [address], [place]. tel:[phone] Referring Provider: Farooq Retana, [address] [place], [address] . tel:[phone] [facility], [address], [place], [place], [address] , [place] tel: [phone] [place] Benign essential hypertensionMix ed hyperlipidemiaL kendall-term (current) use of other medications 2 Levy Trivedi. [address] [place] [address], [address], [place]. tel:[phone] [facility], [address], [place], [place], [address] , [place] tel: [phone] Conversion Department No Information 1 Conversion Doctor. [facility], [place], [address], [place]. [facility], [address], [place], [place], [address] , tel: [phone] [place] SCREEN MALIG NEOP-COLONDMI RENL NT ST UNCNTRLDBENIGN HYPERTENSION 1 Levy [place], [address], [place]. tel:[phone] [facility], [address], [place], [place], [address] , [place] tel: [phone] [place] LONG-TERM USE MEDS NEC 0 1 Stellaqian Trivedi. [address] [place], [place], [address], [place]. tel:[phone] [facility], [address], [place], [place], [address] , [place] tel: [phone] [place] DMII WO CMP NT ST UNCNTRMIXED HYPERLIPIDEMIA 3 0 Levy Trivedi. [address] [facility], [place], [place], [address], [place]. tel:[phone] [facility], [address], [place], [place], [address] , [place] tel: [phone] [facility] BLISTER FOOT & TOE-INFECDMI WO CMP UNCNTRLD 0 Levy Trivedi. [address] [place] [address], [place], [place], [address], [place]. tel:[phone] [facility], [address], [place], [place], [address] , [place] tel: [phone] [facility] JEFF HY KID W CR KID I-IV 0 Levy Farooq. [address] [place] [address], [address], [place]. tel:[phone] [facility], [address], [place], [place], [address] , [place] tel: [phone] [place] No Information 8 Veto Jean Baptiste. [address] [place], [address], [place]. tel:[phone] [facility], [address], [place], [place], [address] , tel: [phone] [place] ABN CLINICAL FINDING NEC 6 Levy Damian [address] [place] [address], [address], [place]. tel:[phone] [facility], [address], [place], [place], [address] , tel: [phone] [place] ULCER OF LOWER LIMB NOS May-2 3 Levy [place], [address], . tel:[phone] [employer], [address], [place], [place], [address] , tel: [phone] [place] OSTEOMYELITIS NOS-UNSPEC Feb- 1 Levy Trivedi. [address] [place], [address], . tel:[phone] [facility], [address], [place], [place], [address] , tel: [phone] [place] MITRAL VALVE DISORDER Nov- 1 Levy [place], [address], . tel:[phone] Family History Family Member Type Diagnosis Age At Onset Mother Problem (finding) diabetes melli tus in first degree relative Father Problem (finding) Father Problem (finding) malignant neop lasm of urinary bladder (Cause Of ) Brother Problem (finding) diabetes melli tus in first degree relative Sister Problem (finding) Alive and well Brother Problem (finding) Alive and well Sister Problem (finding) Cancer, brain Immunizations Vaccine Date Status Comments Fluzone High-Dose, high dose , preservative free administered Note: Virginia lopez ; Source: Other Registry Moderna (Booster Dose) COVID Vac, 50 mcg/0.5 mL administered Note: Virginia Sofia ource: Source Unspecified Pneumococcal conjugate PCV20 administered Source: New Immunization Record FLUZONE HD 65+ PF IN J 0.7ML administered Note: Virginia Sofia ource: Other Provider Moderna (Low Dose) COVID19 Vaccine, 0.25mL per dose, booster dose administered Source: Source Unspe cified Moderna (Low Dose) COVID19 Vaccine, 0.25mL per dose, booster dose administered Source: Source Unspe cified Flublok, quadrivalent, preservative free, 0.5mL dosage administered Source: New Immunization Record J&J COVID/Adenovirus Vaccine [id number] viral particles/0.5mL administered Note: [facility]. ; Source: Source Unspecified Pneumococcal polysaccharide PPV23 administered Note: [facility] ; S ource: Source Unspecified Fluzone Quad, preservative free, split virus, 0.5mL dosage administered Note: Christi adkins's ; Source: Source Unspecified SHINGRIX (Zoster vaccine recombinant, adjuvanted) administered Note: done at [facility] in [place] (date is approximate) ; Source: Source Unspecified SHINGRIX (Zoster vaccine recombinant, adjuvanted) administered Source: Source Unspecified Fluzone Quad, split virus, 0.5mL dosage administered Source: Source Unspe cified Fluzone Quad , preservative free, split virus, 0.5mL dosage administered Source: New Immuniza tion Record Influenza, injectable, quadrivalent, preservative free, 3 yrs or older administered Source: New Immuniz ation Record Pneumococcal polysaccharide PPV23 administered Source: Other Provid er Tdap administered Source: New Imm unization Record Influenza, high dose seasonal administere d Source: Other Provider flu (split) preservative patricio e, 3 yrs or older administered Note: [id number] ; Source: New Immunization Record Flu (split) (3 yrs or older) administered Note: [facility]# [id number] ; Source: New Immunization Record Payers Payer name Insurance type Covered republican ID Authoriza tion(s) [place]IC[place] MB [id number] [facility] CI [id number] [facility] [place] CI [id number] [facility] [place] CI [id number] [employer] CI [id number] [employer] CI [id number] Social History Type Description Quantity Date Captured Comments Alcohol Use Details Unknown Caffeine Use Details Unknown Tobacco Use Status Smoking Status No Information Sex Male Chief Complaint And Reason For Visit No Information Reason For Referral Reason For Referral No Information Plan Of Treatment Date Type Action Status Goal Dietary manageme nt education, guidance, and counseling completed Goal Dietary manageme nt education, guidance, and counseling completed Goal Tobacco cessation counseling completed Goal Dietary manageme nt education, guidance, and counseling completed Goal Dietary manageme nt education, guidance, and counseling completed Goal Dietary manageme nt education, guidance, and counseling completed Goal Dietary manageme nt education, guidance, and counseling completed Goal Dietary manageme nt education, guidance, and counseling completed Goal Dietary manageme nt education, guidance, and counseling completed Goal Dietary manageme nt education, guidance, and counseling completed Goal Dietary manageme nt education, guidance, and counseling completed Goal Dietary manageme nt education, guidance, and counseling completed Goal Dietary manageme nt education, guidance, and counseling completed Goal Dietary manageme nt education, guidance, and counseling completed Goal Dietary manageme nt education, guidance, and counseling completed Goal Tobacco cessation counseling completed Goal Dietary manageme nt education, guidance, and counseling completed Goal Dietary manageme nt education, guidance, and counseling completed Referral Ordered: Diabetic shoe (related to Amputated toe of left foot) ordered Referral Referred To: Diabetic shoe Ordered: Referrals: Diabetic shoe. Consult - Level 1 ordered Referral Referred To: Eliud Max DPM [address] [facility]
[place], [phone] Ordered: Referrals: Podiatry. Eliud Max DPM. Evaluation/diagnostic/treatment - Level 3 ordered Referral Referred To: Eliud Lewis MD [address] [facility]
[address] [place], [phone] Ordered: Referrals: Urology. Eliud Lewis MD. Evaluation/diagnostic/treatment - Level 3 ordered Referral Referred To: [address] [place], [phone] Ordered: CT abdomen and pelvis without contrast ordered Referral Ordered: COLONOSCOPY, Flexible, Proximal To Splenic, Diagnostic, Wor W/O Collection Of Sp ordered Referral Referred To: Schuyler Carney MD [address] [facility]
[address] [place], [phone] Ordered: Referrals: Cardiology. Schuyler Carney MD. Evaluation/diagnostic/treatment - Level 3 Appointment date/timeframe: 10/29/2019 ordered Referral Ordered: Complete echocardiography with color flow Doppler imaging Appointment date/timeframe: 10/25/2019 ordered Referral Ordered: Complete echocardiography in adult patient ordered Appointment Nayan Tsai BOOKED Appointment Nayan Tsai BOOKED Future Order: Lab Order UA- Dips tick (office Lab) ([id number]), Collected on: Ordered Future Order: Lab Order ColoGuar d ([id number]), Collected on: Ordered Future Order: Lab Order Microalb umin/Creatinine Ratio ([id number]), Collected on: , Sent on: Sent Future Order: Lab Order CBC AUTO DIFF ([id number]), Sent on: Sent Future Order: Lab Order Hemoglob in A1c ([id number]), Sent on: Sent Future Order: Lab Order PSA ([id number]), S ent on: Sent Future Order: Lab Order Comprehe nsive Metabolic (CMP) ([id number]), Sent on: Sent Future Order: Lab Order Lipid Pa socorro ([id number]), Sent on: Sent History Of Present Illness Encounter Date Complaint History Of Prese nt Illness chronic problems amputated toe-- no problemsdm with neuropathy-- doing ok, needs diabetic shoeshtn-- controlled on medcardiomyopathy-- controlled with entrestothromopenia-- has been better\]vfib-- doing ok, no recent problems PX Chronic conditio nsdm with ulcer-- podiatry trying to rule out infectionhtn-- controlled on medamputated toe-- no recent problemsosa-- doing well on cpapvf-- got aicddiet--okexercise---walkingimmunizati ons--utdscreenings-- utdmood-- life is stressesdsleep--- okmemory-- ok toe ulcer some bloodno inj ury`no drainagetrying ot keep it clean chronic conditions *See Chronic Conditions HPI Chronic Conditions *See Chronic Conditions HPI px Chronic conditio nsCardiomyopathy, unspecified I42.9 (last billed 2021)-- no chest paincad-- no chest painVentricular tachycardia I47.2 (last billed 2021)-- got aicdTy2 DM with other circulatory complications E11.59 (last billed 2020)-- controlled on medLong term (current) use of insulin Z79.4 (last billed 2020)--seems to be running okafib-- no recurrenceConsider; Low PLT =148-- no bleeding problemsdiet-- doing wellexercise-- walks a mile a dayimmunizationsscreenings-- needs fiot testmoodsleepmemory-- fine Medicare preventive A Health Ris k Assessment has been performed and reviewed. The patient has not felt depressed and has had interest and pleasure doing things recently. The patient has not fallen in the last year. The fall(s) did not result in injury. Patient's activity level is moderate. Patient reports a diabetic diet. Patient denies recent weight gain. Patient denies recent weight loss. Relevant history is positive for tobacco use and alcohol use. Patient encounter Chief complain t: 6 mo f/u chronic conditions.HTN, goal below 130/80Takes carvedilol or carvedilol, hydralazine, isosorbide, lisinopril, chlorthalidone. Cardio is watching closely. They are hesitant to increase lisinopril due to history of hyperkalemiaHome BP readings: noneMixed hyperlipidemiaTakes statin with no side effectsType 2 diabetes mellitus without complicationsTakes glyxambi, humalog on sliding scale, metformin, lantus 33 units dailyFBS: 140-150sLast A1C: 6.9 03/2022Last eye exam: DUE NOWCoronary artery disease involving [place] heart without angina pectoris, unspecified vessel or lesion types/p CABG. Follows with cardiologistIschemic cardiomyopathyS/p ICD. follows with radioisotope technologist PX Chronic conditio nsdm with circulatory combination-- doing ok, lost a little weightcad-- doing ok, some tirednessventricular arrhythmia-- doing well on aicdcardiomyopathty-- betterdiet-- eating lessexercise-- some adtivityimmunizations-- needs covid boossterscreenings== needs cologuardmood-- goodsleep-- ok hematuria noticed blood in urineno burning in urinationsome tenderness in cvano hx of kidney stones 6 mo followup of chr onic conditions 66 year old male who presents for 6 month followup of chronic conditions.Flu - UTDCOVID - UTD with booster Chronic Conditions *See Chronic Conditions HPI toenail toenail was torn off somehownot a lot of apinvery bloodyno sign of infectyion PX chronic conditio nscad with angina-- feeling good, follows with cardiologydm with circulatory compolication, bs in 140s usuallyventricular arrythmoia-- has aicddiet-- trying to watch itexercise-- regular, more walkingscreening-- needs colon cancer screeningimmunizations-- got covdi vaccinemood--- good 6 mo f/u chronic conditions 65 y ear old male who presents for 6 month followup of chronic conditionsPatient reports a hernia to epigastric area after having surgery one year ago. He has no pain to area. He has no change in bowel movements. He reports area is soft. Needs colonoscopy. Patient was referred at last appointment. He wants to wait on colonoscopy until next appt. Chronic Conditions *See Chronic Conditions HPI PX chronic conditio nsarrhythmmia-- cad--- no chest paincardiomyoaptyh--- got aiceddm with circularoty-- not at goaldiet== trying to eat more saladsexercise-- regular in amscreening---- needs colonoscopyimmunizations-- got shingles,mood-- goodsleep--- doing ok overall Telehealth This visit was c ompleted via videochat due to the restrictions of the COVID-19 pandemic. All issues as below were discussed and addressed but physical exam was performed by observation only. If it was felt that the patient should be evaluated in clinic then they were directed there. The patient verbally consented to visit. discuss DM meds hyperkalemia-- p er pt, has last check a week agodm-- has been doing alrighthtn-- bp at goal, no cp or sob F/U from [place] and surgery cad----s p cabg, no chest painiron deificney anemia-- cbc was still low, still taking ironventriuclar arrhythmma- now has aicd--seeing giles later todaycardiomyopaothy-- no leg swelling, no sob 6 month htn-- bp up a bi t, pt feels anxious, more walkindm---holidays made it worse, taking meds, annual eye exam, no numbnesssyustolic murmur-- no shortness of breath Physical chronic conditio nsdm-- doing very well, on medshtn-- bp controlled, no symptomshld-- on statimdiet-- not doing the bestexercise- -needs more exercisescreening--utd with psa, needs colonoscopyimmunizations, needs shingrix mood-- goodsleep-- good 4 month follow up dm-- seems to be doing ok, on insulinsp ampoutated-- doing well, needs insertshtn-- bp a bit high Functional Status Date Functional Assessmen t No Information Instructions Date Instruction Additional Infor yasmin continue current dosing Related to skilled nursing (current) use of insulin continue medslow salt diet Relat ed to HTN, goal below 130/80 continue medical management Rela celine to Coronary artery disease of [place] artery of [place] heart with stable angina pectoris will monitor Related to Throm bopenia will monitor Related to Ventr icular fibrillation needs diabetic shoe Related to A mputated toe of left foot continue medsstay active Related to Type 2 diabetes mellitus with diabetic neuropathy, unspecified continue entresto Related to Isc hemic cardiomyopathy Dietary management e ducation, guidance, and counseling Related to Body mass index (BMI) 33.0-33.9, adult Medication management will monitor Related to Amput ated toe of left foot continue medscontinue eye exams Related to Type 2 diabetes mellitus with foot ulcer continue medslow salt diet Relat ed to Hypertensive heart disease without heart failure follow up with cardiology Relate d to Ventricular fibrillation annual flu shotneeds cologuardhealthy diet and exercise Related to Encounter for general adult medical examination without abnormal findings Dietary management e ducation, guidance, and counseling Related to Body mass index (BMI) 32.0-32.9, adult Urinary Incontinence Medication management Fall Risk Prevention keep dry and cleanwi ll send to podiatry Related to Non-healing ulcer of foot, unspecified laterality, unspecified ulcer stage Dietary management e ducation, guidance, and counseling Related to Body mass index (BMI) 33.0-33.9, adult Medication management Continue insulin Related to Long -term insulin use Continue to work on increasing exercise such as walking. Continue to limit salt intake. Monitor your home blood pressure. Call our office if blood pressure is consistently over 140/90 Related to Hypertensive heart disease without heart failure We will continue to monitor Rela celine to Thrombopenia Continue to work on low fat diet and increase regular exercise with goal of walking at least 30 minutes 3-5 times per week Related to Mixed hyperlipidemia follow up with cardiology Relate d to Ischemic cardiomyopathy continue medical man agement and following with radioisotope technologist Related to Coronary artery disease involving [place] heart without angina pectoris, unspecified vessel or lesion type Continue medications We will check labs todayGet annual diabetic eye exams - SCHEDULE APPOINTMENT SOON Related to Type 2 diabetes mellitus with other circulatory complication, with long-term current use of insulin Continue following w evangelina cardiologistThis was noted after your CABG and has not been noted to recur Related to Atrial fibrillation, unspecified type Dietary management e ducation, guidance, and counseling Related to Body mass index (BMI) 34.0-34.9, adult will check cbc Related to Throm bopenia needs Fit testutd wi th vaccineshealthy diet and exercisefollow up in 6 months Related to Encounter for general adult medical examination without abnormal findings will check [id number] eye examhealthy diet and exercisecontinue meds Related to Type 2 diabetes mellitus with other circulatory complication, with long-term current use of insulin continue medical management Rela celine to Coronary artery disease involving [place] heart without angina pectoris, unspecified vessel or lesion type follow up with cardiology Relate d to Ischemic cardiomyopathy will monitor Related to Atria l fibrillation, unspecified type continue good foot care Related to Amputated toe of left foot follow up with cardiology Relate d to Ventricular tachycardia Counseled on dietary changes Counseled on weight reduction Urinary Incontinence Dietary management e ducation, guidance, and counseling Related to Body mass index (BMI) 33.0-33.9, adult Fall Risk Prevention Medication management Continue medications We will check labs todayContinue to get annual diabetic eye exams. Related to Type 2 diabetes mellitus without complications Continue to work on low fat diet and increase regular exercise with goal of walking at least 30 minutes 3-5 times per week Related to Mixed hyperlipidemia Continue to work on increasing exercise such as walking. Continue to limit salt intake. Monitor your home blood pressure. Call our office if blood pressure is consistently over 140/90 Related to HTN, goal below 130/80 Continue to follow with cardiolo gist Related to Ischemic cardiomyopathy Continue to follow with cardio R elated to Coronary artery disease involving [place] heart without angina pectoris, unspecified vessel or lesion type Dietary management e ducation, guidance, and counseling Related to Body mass index (BMI) 33.0-33.9, adult annual flu shotneeds colon cancer screeninghealthy diet and exercisefollow up in 6 months Related to Encounter for general adult medical examination without abnormal findings continue medsfollow up with card io Related to Coronary artery disease involving [place] heart without angina pectoris, unspecified vessel or lesion type will get echo results Related to Cardiomyopathy, unspecified type continue good foot care Related to Amputated toe of left foot continue monitoring Related to V entricular tachyarrhythmia check [id number] me dsget annual eye exam Related to Type 2 diabetes mellitus with other circulatory complication, with long-term current use of insulin Dietary management e ducation, guidance, and counseling Related to Body mass index (BMI) 33.0-33.9, adult Medication management will check bmpwill g et ct scanwill send empiric abxwill get urine cytology Related to Hematuria, unspecified type Medication management Dietary management e ducation, guidance, and counseling Related to Body mass index (BMI) 34.0-34.9, adult Continue to follow with cardiolo gist Related to Ischemic cardiomyopathy Continue to follow w [facility] radioisotope technologist. Continue with medications Related to Coronary artery disease involving [place] heart without angina pectoris, unspecified vessel or lesion type Continue medications We will check labs todayContinue to get annual diabetic eye exams. You are due in November Related to Type 2 diabetes mellitus without complications Continue to work on low fat diet and increase regular exercise with goal of walking at least 30 minutes 3-5 times per week Related to Mixed hyperlipidemia Continue to work on increasing exercise such as walking. Continue to limit salt intake. Monitor your home blood pressure. Call our office if blood pressure is consistently over 140/90 Related to HTN, goal below 130/80 Dietary management e ducation, guidance, and counseling Related to Body mass index (BMI) 34.0-34.9, adult keep cleanno antibiotics needed Related to Avulsion of toenail, initial encounter Medication management annual flu shotneeds cologuardhealthy diet and exercisefollow up in 6 months Related to Encounter for general adult medical examination without abnormal findings continue medical management Rela celine to Coronary artery disease involving [place] heart without angina pectoris, unspecified vessel or lesion type john tao eye examchekc hba1c Related to Type 2 diabetes mellitus with other circulatory complication, with long-term current use of insulin follow up with cardiology Relate d to Ventricular tachyarrhythmia Medication management Dietary management e ducation, guidance, and counseling Related to Body mass index (BMI) 35.0-35.9, adult Monitor and let us k now if this enlarges, becomes painful or hard. Related to Epigastric hernia Followup in 6 months for physicalYOU ARE DUE FOR COLONOSCOPY. LET US KNOW IF YOU WANT REFERRAL PRIOR TO NEXT APPOINTMENT We encourage you to get the COVID vaccination when it is available to youThis is a 2 part series and it is important that you get both doses to be protected against COVIDYou can go to [employer] and register to get more information on when the vaccine will be available to you Related to Routine medical exam Continue to work on increasing exercise such as walking. Continue to limit salt intake. Monitor your home blood pressure. Call our office if blood pressure is consistently over 140/90 Related to Benign essential hypertension continue current dosing Related to skilled nursing (current) use of insulin continue medical management Rela celine to Coronary artery disease involving [place] heart without angina pectoris, unspecified vessel or lesion type Continue to follow with cardiolo gist Related to Cardiomyopathy, unspecified type We will check labs t nora and contact you with results when availableSCHEDULE ANNUAL EYE EXAMS Related to Type 2 diabetes mellitus with other circulatory complication, with long-term current use of insulin Continue to follow with cardiolo gist Related to Ventricular tachyarrhythmia Dietary management e ducation, guidance, and counseling Related to Body mass index (BMI) 36.0-36.9, adult take 2 metformin christina lyget annual eye exam Related to Type 2 diabetes mellitus with other circulatory complication, with long-term current use of insulin continue current dosing Related to rodent exterminator (current) use of insulin shivam lara monitor for symptoms Related to Cardiomyopathy, unspecified type follow up with mcpike Related to Ventricular tachyarrhythmia continue medical management Rela celine to Coronary artery disease involving [place] heart without angina pectoris, unspecified vessel or lesion type keep good hygiene on foot Relate d to Amputated toe of left foot Dietary management e ducation, guidance, and counseling Related to Body mass index (BMI) 35.0-35.9, adult Medication management continue medscontinue walking Re lated to Type 2 diabetes mellitus without complication, with long-term current use of insulin bp at goalno symptoms as needed Related to Benign essential hypertension will get records fro howie carney and proceed accordingly Related to Hyperkalemia Medication management Dietary management e ducation, guidance, and counseling Related to Body mass index (BMI) 32.0-32.9, adult continue ironcheck cbc in 1 shivani h Related to Iron deficiency anemia, unspecified iron deficiency anemia type continue spironolactone Related to Cardiomyopathy, unspecified type sp cabgcontinue statin and aspir in Related to Coronary artery disease involving [place] heart without angina pectoris, unspecified vessel or lesion type follow up with dr skaggs Related to Ventricular tachyarrhythmia Medication management low salt dietcontinu e medsmonitor twice a week and call in results in 1 month Related to Benign essential hypertension check [id number] [facility] annual eye exam Related to Type 2 diabetes mellitus without complication, with long-term current use of insulin will get echo Related to Systo lic murmur Medication management Dietary management e ducation, guidance, and counseling Related to Body mass index (BMI) 35.0-35.9, adult annual flu shotneeds second shingrixneeds colonosocpyfollow up in 6 months Related to Routine health maintenance bp at goalcontknue medslow salt diet Related to Essential hypertension continue statin Related to Mixed hyperlipidemia at goalcontinue [facility] annual eye examhealthy diet and exercise Related to Type 2 diabetes mellitus with other diabetic neurological complication has hx of mitral darryl ve disorderwill get echo Related to Systolic murmur continue good diabetic foot care Related to Amputated toe of left foot Medication management Dietary management e ducation, guidance, and counseling Related to Body mass index (BMI) 35.0-35.9, adult needs diabetic shoes Related to Amputated toe of left foot bp a bit highmonitor at home Rel ated to HTN, goal below 130/80 will check [id number] change to glyxambi Related to Type 2 diabetes mellitus with other diabetic neurological complication contineu current dosing 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
--- OUTSIDE RECORDS SUMMARY | 2025-02-15 10:06 | XMS_ITS | Clinical Summary ---
Author Organization [facility] Address [address] [place] [address] Care Team Providers Care Piece Goods Clerk Name Role Phone Mohsen Lewis MD Primary Care Provider [phone] Allergies Active Allergy Reactions Criticality Noted Date [...] 05/21/2024 Assessment & Plan (09/06/2024 9:29 AM PARTNER): Patient continue to wear CPAP at 8 [...] weight loss Coronary artery disease invo lving jena coronary artery of jena heart 12/20/2019 Assessment & Plan (10/15/2020 11:02 AM PARTNER): Prior CABG. Pretty continue aspirin and Toprol [...] 12/06/2019 Assessment & Plan (10/15/2020 10:54 AM PARTNER): Check today shows normal function. Underlying rhythm [...] 11/01/2019 Assessment & Plan (10/15/2020 11:02 AM PARTNER): Stable. Continue lisinopril and Toprol Assessment & Plan (12/06/2019 3:34 PM CDT): Severe ischemic status post CABG. Doing well. Blood pressure lower than needs to be. Reduce lisinopril to 10 mg daily Nonrheumatic mitral valve regurgitation 11/01/19 Assessment & Plan (04/09/2020 11:18 AM CDT): [id number] Nonrheumatic aortic valve insufficiency 11/01/19 Diastolic dysfunction 11/01/2019 Mixed hyperlipidemia 11/01/2019 Assessment & Plan (10/15/2020 11:02 AM PARTNER): LDL okay. Continue statin Assessment & Plan [...] will follow up here in 3 months. Encounters Date Type Department Care Team Description 01/11/2025 7:00 AM CDT Ancillary Procedure [facility] [address] [facility] [address] [place] [address] ICD (implantable cardioverter-defibril lator), dual, in situ; Ischemic cardiomyopathy 01/10/2025 Results Follow-Up [facility] [address] [place] [phone] Angelica Reilly MD Transthoracic Echo (TTE) Complete W Doppler/CF 01/08/2025 7:44 AM CDT - 01/08/2025 11:59 PM CDT Hospital Encounter [facility] Cardiac Testing [address] [place] [address] Chronic combined systolic and diastolic heart failure (HCC) Discharge Disposition: Discharge to home or self care 11/26/2024 1:15 PM PARTNER Office Visit [facility] [address] [place] [phone] Angelica Reilly MD Coronary artery disease involving jena coronary artery of jena heart without angina pectoris (Primary Dx); Chronic combined systolic and diastolic heart failure (HCC); Cardiomyopathy, ischemic from Last 3 Months Surgical History Surgery Date Site/Laterality Comments TOE AMPUTATION Family History Medical History Relation Name Comments Stent Brother No Known Problems Father No Known Problems Mother No Known Problems Sister Relation Name Status Comments Brother Alive Father Mother Sister Alive Social History Tobacco Use Types Packs/Day Years Used Date Smoking Tobacco: Some Days Cigars Smokeless Tobacco: Current Tobacco Cessation:Ready to Q uit: Not Asked; Counseling Given: Not Answered Alcohol Use Standard Drinks/Week Comments Not Currently 0 (1 standard drink = 0.6 oz pur e alcohol) Sex and Gender Information Value Date Recorded Sex Assigned at Not on file Legal Sex Male 11:25 AM PARTNER Gender Identity Not on file Sexual Orientation Not on file Obstetrics History Last Filed Vital Signs Vital Sign Reading Time Taken Comments Blood Pressure 117/64 11/26/2024 12:56 PM PARTNER Pulse 80 11/26/2024 12:56 PM PARTNER Temperature 36.2 C (97.1 F) 09/06/2024 8:22 AM PARTNER Respiratory Rate 18 09/06/2024 8:22 AM PARTNER Oxygen Saturation 93% 11/26/2024 12:56 PM PARTNER Inhaled Oxygen Concentration - - Weight 112 kg (247 lb) 11/26/2024 12:56 PM PARTNER Height 182.9 cm (6') 09/06/2024 8:22 AM PARTNER Body Mass Index 33.5 09/06/2024 8:22 AM PARTNER Plan of Treatment Health Maintenance Due Date Last Done Comments Colon Cancer Screening-Colonoscopy 1955 Depression Screening 1955 Fall Risk Assessment 1955 Hepatitis C Screening 1955 Prostate Cancer Screening-PSA 1955 Hepatitis B Screening 1975 Pneumococcal vaccine 65+ (2 of 2 - PCV) 11/12/2016 11/12/2015 Abdominal Aortic Aneurysm (A AA) Screen 2022 11/24/2021, 11/22/2019 Well Visit 65+ 2022 Influenza Vaccine (Season Ended) 2025 06/09/2019, 06/20/2018, 07/05/2015, Additional history exists DTaP/Tdap/Td Vaccine (2 - Td or Tdap) 11/20/2025 11/20/2015 Zoster Vaccine Completed 04/25/2019, 06/20/2018 Procedures Procedure Name Priority Date/Time Associated Diagnosis Comments TRANSTHORACIC ECHO (TTE) COMPLETE W DOPPLER/CF W CONTRAST Routine 01/08/2025 8:51 AM CDT Chronic combined systolic and diastolic heart failure (HCC) ECG 12-LEAD Routine 11/26/2024 12:59 PM PARTNER Coronary artery disease involving jena coronary artery of jena heart without angina pectoris Chronic combined systolic and diastolic heart failure (HCC) CT ABDOMEN PELVIS WO CONTRAST Schedule Routine, Read Routine (OP Routine) 11/24/2021 12:09 PM PARTNER Hematuria, unspecified type from Last 3 Months or Most Recently Relevant to Health Maintenance Results * TRANSTHORACIC ECHO (TTE) COMPLETE W DOPPLER/CF W CONTRAST (01/08/2025 8:51 AM CDT) LV EF 40-45 % CONS SCIMAGE Anatomical Region Laterality Modality Ultrasound 01/08/2025 7:59 AM CDT Narrative 01/10/2025 2:51 PM CDT Transthoracic Echocardiographic Report Patient Name: NAYAN TSAI D : 1955 (69y 6m) Gender: M Study Date: 01/08/2025 07:59:06 AM Ht(Inch): 72 Wt(Lb): 247 BSA: 2.39 Blocker And Polisher Gold Wheel: Tila Engel RDCS Order Provider: ANGELICA REILLY Heart Rate: 71 BMI: 33.5 BP: 117 / 64 Ref Provider: ANGELICA REILLY PROCEDURES: Echocardiographic Report: ([id number]) Transthoracic complete echo with contrast, 2D, spectral [...] regurgitation. No tricuspid valve stenosis. Pulmonic Valve: WV noted with spectral doppler but not seen [...] 1.90 - 4.00 ] MV A Peak Mrak 0.89 m/s LA Length 2C 5.47 cm [...] - 01/10/2025 Transthoracic Echocardiographic Report Patient Name: ANANT NAYANHolly : 1955 (69y 6m) Gender: M Study Date: 01/08/2025 07:59:06 AM Ht(Inch): 72 Wt(Lb): 247 BSA: 2.39 Blocker And Polisher Gold Wheel: Tila Engel RDCS Order Provider: ANGELICA REILLY Heart Rate: 71 BMI: 33.5 BP: 117 / 64 Ref Provider: ANGELICA REILLY PROCEDURES: Echocardiographic Report: ([id number]) Transthoracic complete echo withcontrast, 2D, spectral and [...] valve regurgitation. No tricuspid valvestenosis. Pulmonic Valve: WV noted with spectral doppler but not seen [...] Angelica Reilly MD 01/10/2025 2:51:37 PM CDT us Angelica Reilly MD CV ECHO PROCEDURES Final Result * ECG 12 lead (11/26/2024 12:59 PM PARTNER) us Angelica Reilly MD ECG ORDERABLES Fi nal Result * CT Abdomen Pelvis WO Contrast (11/24/2021 12:09 PM PARTNER) Anatomical Region Laterality Modality Body N/A Computed Tomogra phy 11/24/2021 12:1 7 PM PARTNER Narrative 11/24/2021 12:25 PM PARTNER EXAM DESCRIPTION: CT ABDOMEN PELVIS WO CONTRAST [...] 12:25 PM - Electronically signed by Shane HYATT T: Report ID: [id number] Reading Location: [id number] Procedure Note Shane Aleman MD - 11/24/2021 [...] by Shane Aleman M.D. T: Report ID: [id number] Reading Location: [place] [address] Mohsen Lewis MD IMG CT PROCEDURES Final R esult from Last 3 Months or Most Recently Relevant to Health Maintenance Insurance [facility] MEDICARE [facility] Care Teams Piece Goods Clerk Relationship Specialty Start Date End Date Mohsen Lewis MD PCP - General 10/25/19
[2025-02-15 10:21] LABS: Estimated Glomerular Filt Rate 60
== END 2025-02-15 09:59 | disposition home or self-care (01) ==
PROVIDERS: PCP Internal Medicine; Visit Provider Urology
DX: Z85.51 Personal history of malignant neoplasm of bladder (principal); K80.20 Calculus of gallbladder without cholecystitis without obstruction
CPT/HCPCS: 74178; Q9967